=== PATIENT | male | born 1985 | race Caucasian/White ===

== ENCOUNTER 2020-12-26 11:30 | Emergency (ER) | payer MEDICAID, OTHER | END 2020-12-26 11:55 | LOC: JD.ED 11:30 | DX: Z53.21 Procedure and treatment not carried out due to patient leaving prior to being seen by health care provider (principal) ==

== ENCOUNTER 2020-12-31 09:07 | Inpatient (IN) | payer MEDICAID ==
[2020-12-31] MEDS ORDERED: Ondansetron 4 MG/2 ML SDV IVPUSH ONE (10:02)
[2020-12-31] MEDS ORDERED: Sodium Chloride 0.9% 10 ML Syringe FLUSH PRN (10:02)
[2020-12-31] MEDS ORDERED: Sodium Chloride 0.9% 1,000 ML IV SCH (10:15)
[2020-12-31] MEDS ORDERED: REMDESIVIR 200 MG in Sodium Chloride 0.9% 250 ML IV ONE (11:41)
[2020-12-31] MEDS ORDERED: Dexamethasone 4 MG/ML SDV IVPUSH ONE (11:41)
--- NOTE | 2020-12-31 11:56 | EDM.PDOC ---
ED HPI GENERAL MEDICAL PROBLEM - General Chief Complaint: Respiratory Problem Stated Complaint: COVID +/WORSENING SYMPTOMS Time Seen by Provider: 12/31/20 09:48 Source of Information: Reports: Patient History Limitations: Reports: No Limitations - History of Present Illness INITIAL COMMENTS - FREE TEXT/NARRATIVE: The patient presents with shortness of breath and cough. He was diagnosed with COVID 19 a week ago at our clinic and has gotten worse. He has a fever, chills, cough, shortness of breath, nausea, and vomiting. He says at times he is vomiting blood. He did not get vaccinated. He has no health problems like hypertension, hypercholesterolemia, heart disease or lung disease. He does not smoke. He has not been able to keep anything down. Onset: Gradual Duration: Week(s): Severity: Moderate Improves with: Reports: None Worsens with: Reports: None Associated Symptoms: Reports: Cough, Fever/Chills, Nausea/Vomiting, Shortness of Breath. Denies: Chest Pain, Headaches Generalized Pain Score (Numeric/FACES): 10 - Related Data Allergies Allergy/AdvReac Type Severity Reaction Status Date / Time buprenorphine [From Butrans] Allergy Rash Verified 12/31/20 10:49 Home Meds: Home Meds DULoxetine [Cymbalta] 60 mg PO DAILY 05/11/15 [History] Lidocaine 5% [Lidoderm 5%] 1,400 mg TOP DAILY 05/11/15 [History] Metaxalone [Skelaxin] 400 - 800 mg PO BID PRN 05/11/15 [History] Amphetamine/Dextroamphetamine [Adderall XR] 30 mg PO ASDIRECTED 12/31/20 [History] Past Medical History Musculoskeletal History: Reports: Other (See Below) Other Musculoskeletal History: hand surgery. chronic low back pain due to injury in 2011 Psychiatric History: Reports: ADD, Anxiety, Depression - Infectious Disease History Infectious Disease History: Reports: Chicken Pox - Past Surgical History HEENT Surgical History: Reports: Oral Surgery Social & Family History - Tobacco Use Tobacco Use Status *Q: Never Tobacco User Second Hand Smoke Exposure: No - Caffeine Use Caffeine Use: Reports: Coffee - Recreational Drug Use Recreational Drug Use: No ED ROS GENERAL - Review of Systems Review Of Systems: See Below Constitutional: Reports: Fever, Chills, Weakness, Fatigue HEENT: Reports: No Symptoms Respiratory: Reports: Shortness of Breath, Cough Cardiovascular: Reports: No Symptoms Endocrine: Reports: No Symptoms GI/Abdominal: Reports: Abdominal Pain, Nausea, Vomiting. Denies: Diarrhea ED EXAM, GENERAL - Physical Exam Exam: See Below Exam Limited By: No Limitations General Appearance: Alert, No Apparent Distress Ears: Normal External Exam Nose: Normal Inspection Head: Atraumatic, Normocephalic Neck: Normal Inspection Respiratory/Chest: No Respiratory Distress, Decreased Breath Sounds Cardiovascular: Regular Rate, Rhythm, No Edema, No Murmur GI/Abdominal: Soft, Non-Tender, No Organomegaly, No Mass Back Exam: Normal Inspection Extremities: Normal Inspection Neurological: Alert, Oriented, No Motor/Sensory Deficits #1 Interpretation EKG Date: 12/31/20 Time: 09:56 Rhythm: NSR Rate (Beats/Min): 82 [place]: Normal P-Wave: Present QRS: Normal ST-T: Other (Flattened T waves in the inferior leads) QT: Normal Course - Vital Signs Last Recorded V/S: Last Vital Signs Temp 98.5 F 12/31/20 09:45 Pulse 83 12/31/20 09:45 Resp 24 H 12/31/20 09:45 BP 118/75 12/31/20 09:45 Pulse Ox 82 L 12/31/20 09:45 - Orders/Labs/Meds Orders: Active Orders 24 hr Category Date Time Status Cardiac Monitoring [RC] . DIRECTED Care 12/31/20 10:02 Active Oxygen Therapy [RC] PRN Care 12/31/20 10:02 Active Peripheral IV Care [RC] . DIRECTED Care 12/31/20 10:03 Active Chest 1V Frontal [CR] Stat Exams 12/31/20 10:03 Taken HEPATIC FUNCTION PANEL,HFP [CHEM] DAILY Lab 01/01/21 11:45 Ordered HEPATIC FUNCTION PANEL,HFP [CHEM] DAILY Lab 01/02/21 11:45 Ordered HEPATIC FUNCTION PANEL,HFP [CHEM] DAILY Lab 01/03/21 11:45 Ordered HEPATIC FUNCTION PANEL,HFP [CHEM] DAILY Lab 01/04/21 11:45 Ordered HEPATIC FUNCTION PANEL,HFP [CHEM] Stat Lab 12/31/20 11:41 Ordered Sodium Chloride 0.9% [Normal Saline] 1,000 ml Med 12/31/20 10:15 Active IV .BOLUS Sodium Chloride 0.9% [Saline Flush] Med 12/31/20 10:02 Active 10 ml FLUSH ASDIRECTED PRN ED Antiemetic Medication Reflex [OM.PC] Stat Oth 12/31/20 10:02 Ordered Peripheral IV Insertion Adult [OM.PC] Stat Oth 12/31/20 10:02 Ordered Medication Orders Sodium Chloride (Normal Saline) 1,000 mls @ 1,000 mls/hr IV .BOLUS JORDAN Last Admin: 12/31/20 10:41 Dose: 1,000 mls/hr Documented by: JENNA Sodium Chloride (Sodium Chloride 0.9% 10 Ml Syringe) 10 ml FLUSH ASDIRECTED PRN PRN Reason: Keep Vein Open Last Admin: 12/31/20 10:41 Dose: 10 ml Documented by: JENNA Labs: Laboratory Tests 12/31/20 12/31/20 12/31/20 Range/Units 10:30 10:30 10:30 WBC 2.41 L* (4.23-9.07) K/mm3 RBC 4.82 (4.63-6.08) M/mm3 Hgb 14.0 (13.7-17.5) gm/dl Hct 42.2 (40.1-51.0) % MCV 87.6 (79.0-92.2) fl MCH 29.0 (25.7-32.2) pg MCHC 33.2 (32.2-35.5) g/dl RDW Std Deviation 44.2 H (35.1-43.9) fL Plt Count 169 (163-337) K/mm3 MPV 9.9 (9.4-12.3) fl Neut % (Auto) 59.7 (34.0-67.9) % Lymph % (Auto) 29.5 (21.8-53.1) % Kane % (Auto) 10.4 (5.3-12.2) % Eos % (Auto) 0 L (0.8-7.0) Baso % (Auto) 0.4 (0.1-1.2) % Neut # (Auto) 1.44 L (1.78-5.38) K/mm3 Lymph # (Auto) 0.71 L (1.32-3.57) K/mm3 Kane # (Auto) 0.25 L (0.30-0.82) K/mm3 Eos # (Auto) 0.00 L (0.04-0.54) K/mm3 Baso # (Auto) 0.01 (0.01-0.08) K/mm3 Puncture Site ABG pH (7.35-7.45) ABG pCO2 (35.0-45.0) mmHg ABG pO2 (80.0-100.0) mmHg ABG HCO3 (22.0-26.0) meq/L ABG O2 Saturation (96.0-97.0) % ABG Base Excess (-2-2.0) Camron Test A-a Gradient mmHg O2 Delivery Device Oxygen Flow Rate FiO2 (21.00-100.00) % Sodium 135 L (136-145) mEq/L Potassium 3.9 (3.5-5.1) mEq/L Chloride 97 L (98-107) mEq/L Carbon Dioxide 33 H (21-32) mEq/L Anion Gap 8.9 (5-15) BUN 9 (7-18) mg/dL Creatinine 0.9 (0.7-1.3) mg/dL Est Cr Clr Drug Dosing 135.73 mL/min Estimated GFR (MDRD) > 60 (>60) mL/min BUN/Creatinine Ratio 10.0 L (14-18) Glucose 107 H (70-99) mg/dL Lactic Acid 0.8 (0.4-2.0) mmol/L Calcium 8.1 L (8.5-10.1) mg/dL Ferritin (26-388) ng/ml Total Bilirubin 0.4 (0.2-1.0) mg/dL AST 101 H (15-37) U/L ALT 90 H (16-63) U/L Alkaline Phosphatase 48 (46-116) U/L Lactate Dehydrogenase 443 H (85-227) U/L Troponin I < 0.017 (0.00-0.056) ng/mL C-Reactive Protein 4.4 H* (<1.0) mg/dL Total Protein 6.6 (6.4-8.2) g/dl Albumin 3.3 L (3.4-5.0) g/dl Globulin 3.3 gm/dL Albumin/Globulin Ratio 1.0 (1-2) 12/31/20 12/31/20 Range/Units 10:30 10:32 WBC (4.23-9.07) K/mm3 RBC (4.63-6.08) M/mm3 Hgb (13.7-17.5) gm/dl Hct (40.1-51.0) % MCV (79.0-92.2) fl MCH (25.7-32.2) pg MCHC (32.2-35.5) g/dl RDW Std Deviation (35.1-43.9) fL Plt Count (163-337) K/mm3 MPV (9.4-12.3) fl Neut % (Auto) (34.0-67.9) % Lymph % (Auto) (21.8-53.1) % Kane % (Auto) (5.3-12.2) % Eos % (Auto) (0.8-7.0) Baso % (Auto) (0.1-1.2) % Neut # (Auto) (1.78-5.38) K/mm3 Lymph # (Auto) (1.32-3.57) K/mm3 Kane # (Auto) (0.30-0.82) K/mm3 Eos # (Auto) (0.04-0.54) K/mm3 Baso # (Auto) (0.01-0.08) K/mm3 Puncture Site Lt radial ABG pH 7.42 (7.35-7.45) ABG pCO2 45.0 (35.0-45.0) mmHg ABG pO2 55.0 L (80.0-100.0) mmHg ABG HCO3 28.6 H (22.0-26.0) meq/L ABG O2 Saturation 87.2 L (96.0-97.0) % ABG Base Excess 4.0 H (-2-2.0) Camron Test Positive A-a Gradient 89 mmHg O2 Delivery Device Nasal cannula Oxygen Flow Rate 2.0 FiO2 28.00 (21.00-100.00) % Sodium (136-145) mEq/L Potassium (3.5-5.1) mEq/L Chloride (98-107) mEq/L Carbon Dioxide (21-32) mEq/L Anion Gap (5-15) BUN (7-18) mg/dL Creatinine (0.7-1.3) mg/dL Est Cr Clr Drug Dosing mL/min Estimated GFR (MDRD) (>60) mL/min BUN/Creatinine Ratio (14-18) Glucose (70-99) mg/dL Lactic Acid (0.4-2.0) mmol/L Calcium (8.5-10.1) mg/dL Ferritin 563 H (26-388) ng/ml Total Bilirubin (0.2-1.0) mg/dL AST (15-37) U/L ALT (16-63) U/L Alkaline Phosphatase (46-116) U/L Lactate Dehydrogenase (85-227) U/L Troponin I (0.00-0.056) ng/mL C-Reactive Protein (<1.0) mg/dL Total Protein (6.4-8.2) g/dl Albumin (3.4-5.0) g/dl Globulin gm/dL Albumin/Globulin Ratio (1-2) Meds: Medications Generic Name Dose Route Start Last Admin Trade Name Freq PRN Reason Stop Dose Admin Sodium Chloride 1,000 mls @ 1,000 mls/hr 12/31/20 10:15 12/31/20 10:41 Normal Saline IV 1,000 mls/hr .BOLUS JORDAN Administration Sodium Chloride 10 ml 12/31/20 10:02 12/31/20 10:41 Sodium Chloride 0.9% 10 Ml Syringe FLUSH 10 ml ASDIRECTED PRN Administration Keep Vein Open Discontinued Medications Generic Name Dose Route Start Last Admin Trade Name Freq PRN Reason Stop Dose Admin Dexamethasone 6 mg 12/31/20 11:41 Dexamethasone 4 Mg/Ml Sdv IVPUSH 12/31/20 11:42 ONETIME ONE Remdesivir 200 mg/ Sodium 250 mls @ 250 mls/hr 12/31/20 11:41 Chloride IV 12/31/20 11:42 ONETIME ONE Ondansetron HCl 4 mg 12/31/20 10:02 12/31/20 10:41 Ondansetron 4 Mg/2 Ml Sdv IVPUSH 12/31/20 10:03 4 mg ONETIME ONE Administration - Re-Assessments/Exams Free Text/Narrative Re-Assessment/Exam: 12/31/20 12:03 I ordered oxygen, IV NS 1L bolus, zofran 4mg IV, labs, EKG, CXR, lactic acid. His EKG shows a NSR with no acute changes. His CXR shows bilateral infiltrates consistent with COVID 19 pneumonia. His WBC was low at 2.41. His pH was normal at 7.42. His pCO2 is normal at 45. His pO2 was low at 55. His Na was low at 135. His lactic acid was normal at 0.8. His ferritin was elevated at 563. His AST is elevated at 101. His ALT was elevated at 90. His LDH was elevated at 443. His troponin is negative. His CRP is elevated at 4.4. I upped his oxygen and pronated him and that improved his oxygenation. I feel he needs to be admitted. I called our hospitalist Dr Howell and he agreed to the admission. I have ordered remdesivir and dexamethasone. Departure - Departure Time of Disposition: 12:10 Disposition: Admitted As Inpatient 68 Condition: Serious Clinical Impression: Pneumonia due to COVID-19 virus, Hypoxia - Discharge Information Referrals: Joann Brink PA-C [Primary Care Provider] - Sepsis Event Note (ED) - Evaluation Sepsis Screening Result: No Definite Risk - Focused Exam Vital Signs: Vital Signs Temp Pulse Resp BP Pulse Ox 12/31/20 09:45 98.5 F 83 24 H 118/75 82 L - My Orders Last 24 Hours: My Active Orders 12/31/20 10:02 Cardiac Monitoring [RC] . DIRECTED Oxygen Therapy [RC] PRN Sodium Chloride 0.9% [Saline Flush] 10 ml FLUSH ASDIRECTED PRN ED Antiemetic Medication Reflex [OM.PC] Stat Peripheral IV Insertion Adult [OM.PC] Stat 12/31/20 10:03 Peripheral IV Care [RC] . DIRECTED Chest 1V Frontal [CR] Stat 12/31/20 10:15 Sodium Chloride 0.9% [Normal Saline] 1,000 ml IV .BOLUS 12/31/20 11:41 HEPATIC FUNCTION PANEL,HFP [CHEM] Stat 01/01/21 11:45 HEPATIC FUNCTION PANEL,HFP [CHEM] DAILY 01/02/21 11:45 HEPATIC FUNCTION PANEL,HFP [CHEM] DAILY 01/03/21 11:45 HEPATIC FUNCTION PANEL,HFP [CHEM] DAILY 01/04/21 11:45 HEPATIC FUNCTION PANEL,HFP [CHEM] DAILY - Assessment/Plan Last 24 Hours: My Active Orders 12/31/20 10:02 Cardiac Monitoring [RC] . DIRECTED Oxygen Therapy [RC] PRN Sodium Chloride 0.9% [Saline Flush] 10 ml FLUSH ASDIRECTED PRN ED Antiemetic Medication Reflex [OM.PC] Stat Peripheral IV Insertion Adult [OM.PC] Stat 12/31/20 10:03 Peripheral IV Care [RC] . DIRECTED Chest 1V Frontal [CR] Stat 12/31/20 10:15 Sodium Chloride 0.9% [Normal Saline] 1,000 ml IV .BOLUS 12/31/20 11:41 HEPATIC FUNCTION PANEL,HFP [CHEM] Stat 01/01/21 11:45 HEPATIC FUNCTION PANEL,HFP [CHEM] DAILY 01/02/21 11:45 HEPATIC FUNCTION PANEL,HFP [CHEM] DAILY 01/03/21 11:45 HEPATIC FUNCTION PANEL,HFP [CHEM] DAILY 01/04/21 11:45 HEPATIC FUNCTION PANEL,HFP [CHEM] DAILY
[2020-12-31] MEDS ORDERED: METAXALONE 800 MG PO PRN (12:13)
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
[2020-12-31] MEDS ORDERED: Non-Formulary Medication 1 Each (Amphetamine/Dextroamphetamine [Adderall Xr] 30 MG Cap.Er) PO SCH (12:15)
[2020-12-31] MEDS ORDERED: Metoclopramide 10 MG/2 ML SDV IVPUSH ONE (12:29)
[2020-12-31] MEDS ORDERED: Albuterol/Ipratropium 3.0-0.5 MG/3 ML Neb Soln NEB PRN (12:45)
[2020-12-31] MEDS ORDERED: Acetaminophen 325 MG Tab PO PRN (12:45)
[2020-12-31] MEDS ORDERED: Docusate Sodium 100 MG Cap PO PRN (12:45)
[2020-12-31] MEDS ORDERED: Temazepam 15 MG Cap PO PRN (12:45)
[2020-12-31] MEDS: Ondansetron 4 MG Tab.DIS PO PRN (14:24)
[2020-12-31] MEDS: Pantoprazole 40 MG Vial IVPUSH SCH ×2 (14:24→20:45)
[2020-12-31] MEDS: Promethazine 25 MG Tab PO PRN (16:07)
[2020-12-31] MEDS: Ondansetron 4 MG/2 ML SDV IVPUSH PRN ×2 (16:07→20:57)
[2020-12-31] MEDS: oxyCODONE 5 MG Tab PO PRN (21:05)
[2020-12-31] MEDS: Albuterol 6.7 GM Inhaler INH PRN (21:17)
--- NOTE | 2021-01-01 07:00 | PCM.PN ---
- General Info Date of Service: 01/01/21 Admission Dx/Problem (Free Text): Admission Diagnosis/Problem Admission Diagnosis/Problem Hypoxia Subjective Update: Patient is a 35-year-old gentleman who was admitted yesterday secondary to nausea and vomiting as well as COVID-19 pneumonia. The patient today says that he still has some nausea. He is feeling short of breath. The patient has been tolerating minimal food intake. The patient has lower back pain which has been chronic for him. The patient does feel that he has improved somewhat. Functional Status: Reports: Pain Controlled. Denies: Tolerating Diet - Review of Systems General: Reports: Weakness HEENT: Reports: No Symptoms Pulmonary: Reports: Shortness of Breath, Cough Cardiovascular: Reports: No Symptoms Gastrointestinal: Reports: Nausea Genitourinary: Reports: No Symptoms Musculoskeletal: Reports: No Symptoms Skin: Reports: No Symptoms Neurological: Reports: No Symptoms Psychiatric: Reports: No Symptoms - Patient Data Vitals - Most Recent: Last Vital Signs Temp 36.3 C 01/01/21 04:00 Pulse 82 12/31/20 17:56 Resp 20 01/01/21 04:00 BP 108/64 01/01/21 04:00 Pulse Ox 91 L 01/01/21 05:00 Weight - Most Recent: 115.666 kg I&O - Last 24 Hours: Intake & Output 12/31/20 01/01/21 01/01/21 22:59 06:59 14:59 Intake Total 1250 400 Output Total 300 Balance 950 400 Lab Results Last 24 Hours: Laboratory Results - last 24 hr 12/31/20 12/31/20 12/31/20 Range/Units 10:30 10:30 10:30 WBC 2.41 L* (4.23-9.07) K/mm3 RBC 4.82 (4.63-6.08) M/mm3 Hgb 14.0 (13.7-17.5) gm/dl Hct 42.2 (40.1-51.0) % MCV 87.6 (79.0-92.2) fl MCH 29.0 (25.7-32.2) pg MCHC 33.2 (32.2-35.5) g/dl RDW Std Deviation 44.2 H (35.1-43.9) fL Plt Count 169 (163-337) K/mm3 MPV 9.9 (9.4-12.3) fl Neut % (Auto) 59.7 (34.0-67.9) % Lymph % (Auto) 29.5 (21.8-53.1) % [place] % (Auto) 10.4 (5.3-12.2) % Eos % (Auto) 0 L (0.8-7.0) Baso % (Auto) 0.4 (0.1-1.2) % Neut # (Auto) 1.44 L (1.78-5.38) K/mm3 Lymph # (Auto) 0.71 L (1.32-3.57) K/mm3 [place] # (Auto) 0.25 L (0.30-0.82) K/mm3 Eos # (Auto) 0.00 L (0.04-0.54) K/mm3 Baso # (Auto) 0.01 (0.01-0.08) K/mm3 Puncture Site ABG pH (7.35-7.45) ABG pCO2 (35.0-45.0) mmHg ABG pO2 (80.0-100.0) mmHg ABG HCO3 (22.0-26.0) meq/L ABG O2 Saturation (96.0-97.0) % ABG Base Excess (-2-2.0) Camron Test A-a Gradient mmHg O2 Delivery Device Oxygen Flow Rate FiO2 (21.00-100.00) % Sodium 135 L (136-145) mEq/L Potassium 3.9 (3.5-5.1) mEq/L Chloride 97 L (98-107) mEq/L Carbon Dioxide 33 H (21-32) mEq/L Anion Gap 8.9 (5-15) BUN 9 (7-18) mg/dL Creatinine 0.9 (0.7-1.3) mg/dL Est Cr Clr Drug Dosing 135.73 mL/min Estimated GFR (MDRD) > 60 (>60) mL/min BUN/Creatinine Ratio 10.0 L (14-18) Glucose 107 H (70-99) mg/dL Lactic Acid 0.8 (0.4-2.0) mmol/L Calcium 8.1 L (8.5-10.1) mg/dL Magnesium (1.8-2.4) mg/dL Ferritin (26-388) ng/ml Total Bilirubin 0.4 (0.2-1.0) mg/dL Direct Bilirubin 0.10 (0.0-0.2) mg/dl AST 101 H (15-37) U/L ALT 90 H (16-63) U/L Alkaline Phosphatase 48 (46-116) U/L Lactate Dehydrogenase 443 H (85-227) U/L Troponin I < 0.017 (0.00-0.056) ng/mL C-Reactive Protein 4.4 H* (<1.0) mg/dL Total Protein 6.6 (6.4-8.2) g/dl Albumin 3.3 L (3.4-5.0) g/dl Globulin 3.3 gm/dL Albumin/Globulin Ratio 1.0 (1-2) 12/31/20 12/31/20 01/01/21 Range/Units 10:30 10:32 04:50 WBC 2.44 L* (4.23-9.07) K/mm3 RBC 4.90 (4.63-6.08) M/mm3 Hgb 14.0 (13.7-17.5) gm/dl Hct 43.3 (40.1-51.0) % MCV 88.4 (79.0-92.2) fl MCH 28.6 (25.7-32.2) pg MCHC 32.3 (32.2-35.5) g/dl RDW Std Deviation 45.7 H (35.1-43.9) fL Plt Count 184 (163-337) K/mm3 MPV 9.7 (9.4-12.3) fl Neut % (Auto) 55.0 (34.0-67.9) % Lymph % (Auto) 30.7 (21.8-53.1) % [place] % (Auto) 13.5 H (5.3-12.2) % Eos % (Auto) 0 L (0.8-7.0) Baso % (Auto) 0.4 (0.1-1.2) % Neut # (Auto) 1.34 L (1.78-5.38) K/mm3 Lymph # (Auto) 0.75 L (1.32-3.57) K/mm3 [place] # (Auto) 0.33 (0.30-0.82) K/mm3 Eos # (Auto) 0.00 L (0.04-0.54) K/mm3 Baso # (Auto) 0.01 (0.01-0.08) K/mm3 Puncture Site Lt radial ABG pH 7.42 (7.35-7.45) ABG pCO2 45.0 (35.0-45.0) mmHg ABG pO2 55.0 L (80.0-100.0) mmHg ABG HCO3 28.6 H (22.0-26.0) meq/L ABG O2 Saturation 87.2 L (96.0-97.0) % ABG Base Excess 4.0 H (-2-2.0) Camron Test Positive A-a Gradient 89 mmHg O2 Delivery Device Nasal cannula Oxygen Flow Rate 2.0 FiO2 28.00 (21.00-100.00) % Sodium (136-145) mEq/L Potassium (3.5-5.1) mEq/L Chloride (98-107) mEq/L Carbon Dioxide (21-32) mEq/L Anion Gap (5-15) BUN (7-18) mg/dL Creatinine (0.7-1.3) mg/dL Est Cr Clr Drug Dosing mL/min Estimated GFR (MDRD) (>60) mL/min BUN/Creatinine Ratio (14-18) Glucose (70-99) mg/dL Lactic Acid (0.4-2.0) mmol/L Calcium (8.5-10.1) mg/dL Magnesium (1.8-2.4) mg/dL Ferritin 563 H (26-388) ng/ml Total Bilirubin (0.2-1.0) mg/dL Direct Bilirubin (0.0-0.2) mg/dl AST (15-37) U/L ALT (16-63) U/L Alkaline Phosphatase (46-116) U/L Lactate Dehydrogenase (85-227) U/L Troponin I (0.00-0.056) ng/mL C-Reactive Protein (<1.0) mg/dL Total Protein (6.4-8.2) g/dl Albumin (3.4-5.0) g/dl Globulin gm/dL Albumin/Globulin Ratio (1-2) 01/01/21 Range/Units 04:50 WBC (4.23-9.07) K/mm3 RBC (4.63-6.08) M/mm3 Hgb (13.7-17.5) gm/dl Hct (40.1-51.0) % MCV (79.0-92.2) fl MCH (25.7-32.2) pg MCHC (32.2-35.5) g/dl RDW Std Deviation (35.1-43.9) fL Plt Count (163-337) K/mm3 MPV (9.4-12.3) fl Neut % (Auto) (34.0-67.9) % Lymph % (Auto) (21.8-53.1) % [place] % (Auto) (5.3-12.2) % Eos % (Auto) (0.8-7.0) Baso % (Auto) (0.1-1.2) % Neut # (Auto) (1.78-5.38) K/mm3 Lymph # (Auto) (1.32-3.57) K/mm3 [place] # (Auto) (0.30-0.82) K/mm3 Eos # (Auto) (0.04-0.54) K/mm3 Baso # (Auto) (0.01-0.08) K/mm3 Puncture Site ABG pH (7.35-7.45) ABG pCO2 (35.0-45.0) mmHg ABG pO2 (80.0-100.0) mmHg ABG HCO3 (22.0-26.0) meq/L ABG O2 Saturation (96.0-97.0) % ABG Base Excess (-2-2.0) Camron Test A-a Gradient mmHg O2 Delivery Device Oxygen Flow Rate FiO2 (21.00-100.00) % Sodium 142 (136-145) mEq/L Potassium 4.2 (3.5-5.1) mEq/L Chloride 104 (98-107) mEq/L Carbon Dioxide 32 (21-32) mEq/L Anion Gap 10.2 (5-15) BUN 11 (7-18) mg/dL Creatinine 0.9 (0.7-1.3) mg/dL Est Cr Clr Drug Dosing 135.73 mL/min Estimated GFR (MDRD) > 60 (>60) mL/min BUN/Creatinine Ratio 12.2 L (14-18) Glucose 117 H (70-99) mg/dL Lactic Acid (0.4-2.0) mmol/L Calcium 8.3 L (8.5-10.1) mg/dL Magnesium 2.0 (1.8-2.4) mg/dL Ferritin (26-388) ng/ml Total Bilirubin 0.4 (0.2-1.0) mg/dL Direct Bilirubin (0.0-0.2) mg/dl AST 90 H (15-37) U/L ALT 86 H (16-63) U/L Alkaline Phosphatase 45 L (46-116) U/L Lactate Dehydrogenase (85-227) U/L Troponin I (0.00-0.056) ng/mL C-Reactive Protein 3.8 H* (<1.0) mg/dL Total Protein 6.4 (6.4-8.2) g/dl Albumin 3.0 L (3.4-5.0) g/dl Globulin 3.4 gm/dL Albumin/Globulin Ratio 0.9 L (1-2) Med Orders - Current: Current Medications Acetaminophen (Acetaminophen 325 Mg Tab) 650 mg PO Q4H PRN PRN Reason: Pain (Mild 1-3)/fever Albuterol (Albuterol 6.7 Gm Inhaler) 0 gm INH Q4H PRN PRN Reason: SOB/WHEEZING Last Admin: 12/31/20 21:17 Dose: 2 puff Documented by: Albuterol/Ipratropium (Albuterol/Ipratropium 3.0-0.5 Mg/3 Ml Neb Soln) 3 ml NEB Q4H PRN PRN Reason: Shortness Of Breath/wheezing Dexamethasone (Dexamethasone 4 Mg Tab) 6 mg PO DAILY [facility] Docusate Sodium (Docusate Sodium 100 Mg Cap) 100 mg PO BID PRN PRN Reason: Constipation Duloxetine HCl (Duloxetine 30 Mg Cap) 60 mg PO DAILY [facility] Remdesivir 100 mg/ Sodium (Chloride) 100 mls @ 100 mls/hr IV Q24H [facility] Stop: 01/04/21 13:59 Ondansetron HCl (Ondansetron 4 Mg Tab.Dis) 4 mg PO Q4H PRN PRN Reason: nausea, able to take PO Last Admin: 12/31/20 14:24 Dose: 4 mg Documented by: Ondansetron HCl (Ondansetron 4 Mg/2 Ml Sdv) 4 mg IVPUSH Q6H PRN PRN Reason: Nausea/Vomiting Last Admin: 12/31/20 20:57 Dose: 4 mg Documented by: Oxycodone HCl (Oxycodone 5 Mg Tab) 5 mg PO Q4H PRN PRN Reason: Pain (moderate 4-6) Last Admin: 12/31/20 21:05 Dose: 5 mg Documented by: Pantoprazole Sodium (Pantoprazole 40 Mg Vial) 40 mg IVPUSH BID JORDAN Last Admin: 12/31/20 20:45 Dose: 40 mg Documented by: Promethazine HCl (Promethazine 25 Mg Tab) 25 mg PO Q12H PRN PRN Reason: Nausea/Vomiting Last Admin: 12/31/20 16:07 Dose: 25 mg Documented by: Sodium Chloride (Sodium Chloride 0.9% 10 Ml Syringe) 10 ml FLUSH ASDIRECTED PRN PRN Reason: Keep Vein Open Last Admin: 12/31/20 10:41 Dose: 10 ml Documented by: Temazepam (Temazepam 15 Mg Cap) 15 mg PO BEDTIME PRN PRN Reason: Sleep Discontinued Medications Dexamethasone (Dexamethasone 4 Mg/Ml Sdv) 6 mg IVPUSH ONETIME ONE Stop: 12/31/20 11:42 Last Admin: 12/31/20 13:09 Dose: 6 mg Documented by: Enoxaparin Sodium (Enoxaparin 40 Mg/0.4 Ml Syringe) 40 mg SUBCUT DAILY [facility] Sodium Chloride (Normal Saline) 1,000 mls @ 1,000 mls/hr IV .BOLUS [facility] Last Admin: 12/31/20 10:41 Dose: 1,000 mls/hr Documented by: Remdesivir 200 mg/ Sodium (Chloride) 250 mls @ 250 mls/hr IV ONETIME ONE Stop: 12/31/20 11:42 Last Admin: 12/31/20 13:15 Dose: 250 mls/hr Documented by: Metoclopramide HCl (Metoclopramide 10 Mg/2 Ml Sdv) 10 mg IVPUSH ONETIME ONE Stop: 12/31/20 12:30 Last Admin: 12/31/20 13:09 Dose: 10 mg Documented by: Non-Formulary Medication (Amphetamine/Dextroamphetamine [Adderall Xr]) 30 mg PO ASDIRECTED JORDAN Non-Formulary Medication (Metaxalone) 400 mg PO BID PRN PRN Reason: Pain Ondansetron HCl (Ondansetron 4 Mg/2 Ml Sdv) 4 mg IVPUSH ONETIME ONE Stop: 12/31/20 10:03 Last Admin: 12/31/20 10:41 Dose: 4 mg Documented by: - Exam Quality Assessment: Supplemental Oxygen, DVT Prophylaxis General: Alert, Oriented, Cooperative, No Acute Distress HEENT: Pupils Equal, Pupils Reactive, EOMI, Mucous Membr. Moist/[place] Neck: Supple, Trachea Midline Lungs: Decreased Breath Sounds, Crackles, Rales Cardiovascular: Regular Rate, Regular Rhythm GI/Abdominal Exam: Normal Bowel Sounds, Soft, Non-Tender, No Distention (Male) Exam: Deferred Back Exam: Normal Inspection, Full Range of Motion Extremities: Normal Inspection, Normal Range of Motion, No Pedal Edema Skin: Warm, Intact, Moist Neurological: No New Focal Deficit, Normal Gait, Normal Speech, Normal Tone Psy/Mental Status: Alert, Normal Affect, Normal Mood - Patient Data Lab Results Last 24 hrs: Laboratory Results - last 24 hr 12/31/20 12/31/20 12/31/20 Range/Units 10:30 10:30 10:30 WBC 2.41 L* (4.23-9.07) K/mm3 RBC 4.82 (4.63-6.08) M/mm3 Hgb 14.0 (13.7-17.5) gm/dl Hct 42.2 (40.1-51.0) % MCV 87.6 (79.0-92.2) fl MCH 29.0 (25.7-32.2) pg MCHC 33.2 (32.2-35.5) g/dl RDW Std Deviation 44.2 H (35.1-43.9) fL Plt Count 169 (163-337) K/mm3 MPV 9.9 (9.4-12.3) fl Neut % (Auto) 59.7 (34.0-67.9) % Lymph % (Auto) 29.5 (21.8-53.1) % [place] % (Auto) 10.4 (5.3-12.2) % Eos % (Auto) 0 L (0.8-7.0) Baso % (Auto) 0.4 (0.1-1.2) % Neut # (Auto) 1.44 L (1.78-5.38) K/mm3 Lymph # (Auto) 0.71 L (1.32-3.57) K/mm3 [place] # (Auto) 0.25 L (0.30-0.82) K/mm3 Eos # (Auto) 0.00 L (0.04-0.54) K/mm3 Baso # (Auto) 0.01 (0.01-0.08) K/mm3 Puncture Site ABG pH (7.35-7.45) ABG pCO2 (35.0-45.0) mmHg ABG pO2 (80.0-100.0) mmHg ABG HCO3 (22.0-26.0) meq/L ABG O2 Saturation (96.0-97.0) % ABG Base Excess (-2-2.0) Camron Test A-a Gradient mmHg O2 Delivery Device Oxygen Flow Rate FiO2 (21.00-100.00) % Sodium 135 L (136-145) mEq/L Potassium 3.9 (3.5-5.1) mEq/L Chloride 97 L (98-107) mEq/L Carbon Dioxide 33 H (21-32) mEq/L Anion Gap 8.9 (5-15) BUN 9 (7-18) mg/dL Creatinine 0.9 (0.7-1.3) mg/dL Est Cr Clr Drug Dosing 135.73 mL/min Estimated GFR (MDRD) > 60 (>60) mL/min BUN/Creatinine Ratio 10.0 L (14-18) Glucose 107 H (70-99) mg/dL Lactic Acid 0.8 (0.4-2.0) mmol/L Calcium 8.1 L (8.5-10.1) mg/dL Magnesium (1.8-2.4) mg/dL Ferritin (26-388) ng/ml Total Bilirubin 0.4 (0.2-1.0) mg/dL Direct Bilirubin 0.10 (0.0-0.2) mg/dl AST 101 H (15-37) U/L ALT 90 H (16-63) U/L Alkaline Phosphatase 48 (46-116) U/L Lactate Dehydrogenase 443 H (85-227) U/L Troponin I < 0.017 (0.00-0.056) ng/mL C-Reactive Protein 4.4 H* (<1.0) mg/dL Total Protein 6.6 (6.4-8.2) g/dl Albumin 3.3 L (3.4-5.0) g/dl Globulin 3.3 gm/dL Albumin/Globulin Ratio 1.0 (1-2) 12/31/20 12/31/20 01/01/21 Range/Units 10:30 10:32 04:50 WBC 2.44 L* (4.23-9.07) K/mm3 RBC 4.90 (4.63-6.08) M/mm3 Hgb 14.0 (13.7-17.5) gm/dl Hct 43.3 (40.1-51.0) % MCV 88.4 (79.0-92.2) fl MCH 28.6 (25.7-32.2) pg MCHC 32.3 (32.2-35.5) g/dl RDW Std Deviation 45.7 H (35.1-43.9) fL Plt Count 184 (163-337) K/mm3 MPV 9.7 (9.4-12.3) fl Neut % (Auto) 55.0 (34.0-67.9) % Lymph % (Auto) 30.7 (21.8-53.1) % [place] % (Auto) 13.5 H (5.3-12.2) % Eos % (Auto) 0 L (0.8-7.0) Baso % (Auto) 0.4 (0.1-1.2) % Neut # (Auto) 1.34 L (1.78-5.38) K/mm3 Lymph # (Auto) 0.75 L (1.32-3.57) K/mm3 [place] # (Auto) 0.33 (0.30-0.82) K/mm3 Eos # (Auto) 0.00 L (0.04-0.54) K/mm3 Baso # (Auto) 0.01 (0.01-0.08) K/mm3 Puncture Site Lt radial ABG pH 7.42 (7.35-7.45) ABG pCO2 45.0 (35.0-45.0) mmHg ABG pO2 55.0 L (80.0-100.0) mmHg ABG HCO3 28.6 H (22.0-26.0) meq/L ABG O2 Saturation 87.2 L (96.0-97.0) % ABG Base Excess 4.0 H (-2-2.0) Camron Test Positive A-a Gradient 89 mmHg O2 Delivery Device Nasal cannula Oxygen Flow Rate 2.0 FiO2 28.00 (21.00-100.00) % Sodium (136-145) mEq/L Potassium (3.5-5.1) mEq/L Chloride (98-107) mEq/L Carbon Dioxide (21-32) mEq/L Anion Gap (5-15) BUN (7-18) mg/dL Creatinine (0.7-1.3) mg/dL Est Cr Clr Drug Dosing mL/min Estimated GFR (MDRD) (>60) mL/min BUN/Creatinine Ratio (14-18) Glucose (70-99) mg/dL Lactic Acid (0.4-2.0) mmol/L Calcium (8.5-10.1) mg/dL Magnesium (1.8-2.4) mg/dL Ferritin 563 H (26-388) ng/ml Total Bilirubin (0.2-1.0) mg/dL Direct Bilirubin (0.0-0.2) mg/dl AST (15-37) U/L ALT (16-63) U/L Alkaline Phosphatase (46-116) U/L Lactate Dehydrogenase (85-227) U/L Troponin I (0.00-0.056) ng/mL C-Reactive Protein (<1.0) mg/dL Total Protein (6.4-8.2) g/dl Albumin (3.4-5.0) g/dl Globulin gm/dL Albumin/Globulin Ratio (1-2) 01/01/21 Range/Units 04:50 WBC (4.23-9.07) K/mm3 RBC (4.63-6.08) M/mm3 Hgb (13.7-17.5) gm/dl Hct (40.1-51.0) % MCV (79.0-92.2) fl MCH (25.7-32.2) pg MCHC (32.2-35.5) g/dl RDW Std Deviation (35.1-43.9) fL Plt Count (163-337) K/mm3 MPV (9.4-12.3) fl Neut % (Auto) (34.0-67.9) % Lymph % (Auto) (21.8-53.1) % [place] % (Auto) (5.3-12.2) % Eos % (Auto) (0.8-7.0) Baso % (Auto) (0.1-1.2) % Neut # (Auto) (1.78-5.38) K/mm3 Lymph # (Auto) (1.32-3.57) K/mm3 [place] # (Auto) (0.30-0.82) K/mm3 Eos # (Auto) (0.04-0.54) K/mm3 Baso # (Auto) (0.01-0.08) K/mm3 Puncture Site ABG pH (7.35-7.45) ABG pCO2 (35.0-45.0) mmHg ABG pO2 (80.0-100.0) mmHg ABG HCO3 (22.0-26.0) meq/L ABG O2 Saturation (96.0-97.0) % ABG Base Excess (-2-2.0) Camron Test A-a Gradient mmHg O2 Delivery Device Oxygen Flow Rate FiO2 (21.00-100.00) % Sodium 142 (136-145) mEq/L Potassium 4.2 (3.5-5.1) mEq/L Chloride 104 (98-107) mEq/L Carbon Dioxide 32 (21-32) mEq/L Anion Gap 10.2 (5-15) BUN 11 (7-18) mg/dL Creatinine 0.9 (0.7-1.3) mg/dL Est Cr Clr Drug Dosing 135.73 mL/min Estimated GFR (MDRD) > 60 (>60) mL/min BUN/Creatinine Ratio 12.2 L (14-18) Glucose 117 H (70-99) mg/dL Lactic Acid (0.4-2.0) mmol/L Calcium 8.3 L (8.5-10.1) mg/dL Magnesium 2.0 (1.8-2.4) mg/dL Ferritin (26-388) ng/ml Total Bilirubin 0.4 (0.2-1.0) mg/dL Direct Bilirubin (0.0-0.2) mg/dl AST 90 H (15-37) U/L ALT 86 H (16-63) U/L Alkaline Phosphatase 45 L (46-116) U/L Lactate Dehydrogenase (85-227) U/L Troponin I (0.00-0.056) ng/mL C-Reactive Protein 3.8 H* (<1.0) mg/dL Total Protein 6.4 (6.4-8.2) g/dl Albumin 3.0 L (3.4-5.0) g/dl Globulin 3.4 gm/dL Albumin/Globulin Ratio 0.9 L (1-2) Result Diagrams: 01/01/21 04:50 01/01/21 04:50 Sepsis Event Note - Evaluation Sepsis Screening Result: Possible Sepsis Risk - Focused Exam Vital Signs: Vital Signs Temp Resp BP Pulse Ox Pulse Ox 01/01/21 05:00 91 L 01/01/21 04:26 91 L 01/01/21 04:00 36.3 C 20 108/64 90 L 12/31/20 23:58 36.0 C L 20 99/68 91 L 12/31/20 23:03 91 L 12/31/20 23:00 92 L 12/31/20 22:00 92 L 12/31/20 21:20 96 12/31/20 21:00 100 98 12/31/20 20:40 100 12/31/20 20:00 35.8 C L 20 94/54 L 95 - Problem List & Annotations (1) Acute respiratory failure due to COVID-19 SNOMED Code(s): 572427136 Code(s): U07.1 - COVID-19; J96.00 - ACUTE RESPIRATORY FAILURE, UNSP W HYPOXIA OR HYPERCAPNIA Status: Acute Priority: High Current Visit: Yes (2) Pneumonia due to COVID-19 virus SNOMED Code(s): 009014413400852091 Code(s): U07.1 - COVID-19; J12.82 - PNEUMONIA DUE TO CORONAVIRUS DISEASE 2019 Status: Acute Priority: High Current Visit: Yes (3) Hypoxia SNOMED Code(s): 691916154 Code(s): R09.02 - HYPOXEMIA Status: Acute Priority: High Current Visit: Yes (4) Leukopenia SNOMED Code(s): 63198763, 400067821 Code(s): D72.819 - DECREASED WHITE BLOOD CELL COUNT, UNSPECIFIED Status: Acute Priority: High Current Visit: Yes Qualifiers: Leukopenia type: neutropenia Neutropenia type: due to infection Qualified Code(s): D70.3 - Neutropenia due to infection - Problem List Review Problem List Initiated/Reviewed/Updated: Yes - My Orders Last 24 Hours: My Active Orders 12/31/20 12:45 Oxygen Therapy [RC] PRN Up ad [place] [RC] ASDIRECTED VTE/DVT Education [RC] Vital Signs [RC] Q4H Acetaminophen [TylenoL] 650 mg PO Q4H PRN Albuterol/Ipratropium [DuoNeb 3.0-0.5 MG/3 ML] 3 ml NEB Q4H PRN Docusate Sodium [Colace] 100 mg PO BID PRN Ondansetron [Zofran ODT] 4 mg PO Q4H PRN Temazepam [Restoril] 15 mg PO BEDTIME PRN oxyCODONE 5 mg PO Q4H PRN Resuscitation Status Routine 12/31/20 12:46 Cardiac Monitoring [RC] CONTINUOUS 12/31/20 12:52 RT Aerosol Therapy [RC] ASDIRECTED 12/31/20 13:00 Pantoprazole [ProTONIX IV] 40 mg IVPUSH BID 12/31/20 13:19 Antiembolic Devices [RC] SCD [Sequential Compression Device] [OM.PC] Routine 12/31/20 13:23 Chest Physiotherapy [RT Chest Physiotherapy] [RC] ASDIRECTED Incentive Spirometry [RT Incentive Spirometry] [RC] Q1HWA 12/31/20 13:24 Albuterol [Proventil HFA] See Dose Instructions INH Q4H PRN 12/31/20 15:55 Ondansetron [Zofran] 4 mg IVPUSH Q6H PRN 12/31/20 15:56 Promethazine [Phenergan] 25 mg PO Q12H PRN 12/31/20 Dinner Regular Diet [DIET] 01/01/21 09:00 DULoxetine [Cymbalta] 60 mg PO DAILY dexAMETHasone 6 mg PO DAILY 01/01/21 13:00 Remdesivir 100 mg Sodium Chloride 0.9% [Normal Saline] 100 ml IV Q24H - Assessment Assessment:: The patient is a 35-year-old gentleman who is somewhat improved today. He is currently on remdesivir and dexamethasone. Both these will be continued. The patient is also remaining leukopenia and repeat laboratory studies have been ordered. The leukopenia is secondary to his viral infection. Continue with diet as tolerated. Continue to monitor vital signs. Continue on telemetry. The patient previously had been contraindicated for pharmacological DVT prophylaxis. This was due to vomiting of blood or blood like material. The patient's hemoglobin has remained stable. If the patient's hemoglobin has remained stable then consider discontinuing SCDs and restarting heparin or Lovenox. The patient should be appropriate for discharge after completion of remdesivir. - Plan Plan:: The patient is a 35-year-old gentleman who is being admitted to acute hospitalization as an inpatient secondary to acute respiratory failure and pneumonia associated with COVID-19. The patient had a single dose of remdesivir 200 mg IV in the emergency department and he has been started on remdesivir 100 mg IV starting tomorrow. The patient is also on dexamethasone 6 mg p.o. daily to start tomorrow. The patient's hemoglobin was in the normal range and he may have been vomiting blood due to gastritis or esophageal tear regardless the patient's nausea and vomiting will be controlled with the use of Zofran and have also elected to place the patient on Protonix IV 40 mg twice daily. The patient will also have repeat laboratory studies in the morning to help monitor the patient's hepatic function from use with the remdesivir. The patient's hemoglobin will be monitored for any drop. The patient also will have his oxygen titrated to keep his saturations around 92%. The patient will have DVT prophylaxis with the use of SCDs. Patient will also have regular diet as tolerated. The patient should be appropriate for discharge after oxygen demands have been improved and remdesivir is finished. This may take 4 to 5 days.
[2021-01-01] MEDS: oxyCODONE 5 MG Tab PO PRN ×4 (07:12→22:13)
[2021-01-01] MEDS: Ondansetron 4 MG/2 ML SDV IVPUSH PRN ×2 (07:13→13:17)
[2021-01-01] MEDS: Albuterol 6.7 GM Inhaler INH PRN ×3 (08:36→21:24)
[2021-01-01] MEDS ORDERED: Enoxaparin 40 MG/0.4 ML Syringe SUBCUT SCH (09:00)
[2021-01-01] MEDS: Pantoprazole 40 MG Vial IVPUSH SCH ×2 (09:21→20:50)
[2021-01-01] MEDS: DULoxetine 30 MG Cap PO SCH (09:21)
--- NOTE | 2021-01-01 09:21 | CR ---
Chest: Portable view of the chest was obtained. Comparison: Prior chest x-ray of 02/25/14. Patchy areas of increased density are seen throughout both sides of the chest. Heart size and mediastinum are normal. Bony structures are grossly intact. Impression: 1. Patchy areas of increased density within both sides of the chest. Findings are suspicious for COVID pneumonia. Please correlate. Diagnostic code #3
[2021-01-01] MEDS: Dexamethasone 4 MG Tab PO SCH (09:22)
[2021-01-01] MEDS: Benzonatate 100 MG Cap PO PRN ×2 (09:22→20:56)
[2021-01-01] MEDS: Promethazine 25 MG Tab PO PRN (09:22)
[2021-01-01] MEDS: REMDESIVIR 100 MG in Sodium Chloride 0.9% 100 ML IV SCH (12:46)
[2021-01-02] MEDS: oxyCODONE 5 MG Tab PO PRN ×3 (05:20→21:38)
[2021-01-02] MEDS: Benzonatate 100 MG Cap PO PRN ×3 (05:20→21:38)
[2021-01-02] MEDS: Albuterol 6.7 GM Inhaler INH PRN ×2 (05:49→07:55)
--- NOTE | 2021-01-02 07:10 | PCM.PN ---
- General Info Date of Service: 01/02/21 Admission Dx/Problem (Free Text): Admission Diagnosis/Problem Admission Diagnosis/Problem Hypoxia Subjective Update: The patient is a 35-year-old gentleman who had been admitted to acute hospitalization on December 31, 2020 due to acute respiratory failure from COVID- 19 pneumonia. The patient today says that he has still has some nausea and he has had some vomiting with blood like material. The patient has been able to tolerate some liquids. The patient says that he is a little bit better today. Functional Status: Reports: Pain Controlled, Tolerating Diet - Review of Systems General: Reports: No Symptoms HEENT: Reports: No Symptoms Pulmonary: Reports: Shortness of Breath, Cough Cardiovascular: Reports: No Symptoms Gastrointestinal: Reports: Decreased Appetite, Nausea, Vomiting Genitourinary: Reports: No Symptoms Musculoskeletal: Reports: No Symptoms Skin: Reports: No Symptoms Neurological: Reports: No Symptoms Psychiatric: Reports: No Symptoms - Patient Data Vitals - Most Recent: Last Vital Signs Temp 36.2 C 01/02/21 04:00 Pulse 82 12/31/20 17:56 Resp 16 01/02/21 04:00 BP 113/73 01/02/21 04:00 Pulse Ox 93 L 01/02/21 06:00 Weight - Most Recent: 114.94 kg I&O - Last 24 Hours: Intake & Output 01/01/21 01/02/21 01/02/21 22:59 06:59 14:59 Intake Total 2100 1000 Balance 2100 1000 Lab Results Last 24 Hours: Laboratory Results - last 24 hr 01/02/21 01/02/21 Range/Units 05:15 05:15 WBC 4.12 L (4.23-9.07) K/mm3 RBC 5.01 (4.63-6.08) M/mm3 Hgb 14.4 (13.7-17.5) gm/dl Hct 45.0 (40.1-51.0) % MCV 89.8 (79.0-92.2) fl MCH 28.7 (25.7-32.2) pg MCHC 32.0 L (32.2-35.5) g/dl RDW Std Deviation 46.7 H (35.1-43.9) fL Plt Count 254 (163-337) K/mm3 MPV 9.8 (9.4-12.3) fl Neut % (Auto) 59.8 (34.0-67.9) % Lymph % (Auto) 26.2 (21.8-53.1) % [place]oun % (Auto) 13.6 H (5.3-12.2) % Eos % (Auto) 0 L (0.8-7.0) Baso % (Auto) 0.2 (0.1-1.2) % Neut # (Auto) 2.46 (1.78-5.38) K/mm3 Lymph # (Auto) 1.08 L (1.32-3.57) K/mm3 [place]oun # (Auto) 0.56 (0.30-0.82) K/mm3 Eos # (Auto) 0.00 L (0.04-0.54) K/mm3 Baso # (Auto) 0.01 (0.01-0.08) K/mm3 Sodium 143 (136-145) mEq/L Potassium 4.9 (3.5-5.1) mEq/L Chloride 103 (98-107) mEq/L Carbon Dioxide 35 H (21-32) mEq/L Anion Gap 9.9 (5-15) BUN 13 (7-18) mg/dL Creatinine 0.9 (0.7-1.3) mg/dL Est Cr Clr Drug Dosing 135.73 mL/min Estimated GFR (MDRD) > 60 (>60) mL/min BUN/Creatinine Ratio 14.4 (14-18) Glucose 136 H (70-99) mg/dL Calcium 8.9 (8.5-10.1) mg/dL Magnesium 2.2 (1.8-2.4) mg/dL Total Bilirubin 0.4 (0.2-1.0) mg/dL AST 67 H (15-37) U/L ALT 78 H (16-63) U/L Alkaline Phosphatase 48 (46-116) U/L C-Reactive Protein 1.8 H* (<1.0) mg/dL Total Protein 7.0 (6.4-8.2) g/dl Albumin 3.3 L (3.4-5.0) g/dl Globulin 3.7 gm/dL Albumin/Globulin Ratio 0.9 L (1-2) Med Orders - Current: Current Medications Acetaminophen (Acetaminophen 325 Mg Tab) 650 mg PO Q4H PRN PRN Reason: Pain (Mild 1-3)/fever Albuterol (Albuterol 6.7 Gm Inhaler) 0 gm INH Q4H PRN PRN Reason: SOB/WHEEZING Last Admin: 01/02/21 05:49 Dose: 2 puff Documented by: Albuterol/Ipratropium (Albuterol/Ipratropium 3.0-0.5 Mg/3 Ml Neb Soln) 3 ml NEB Q4H PRN PRN Reason: Shortness Of Breath/wheezing Benzonatate (Benzonatate 100 Mg Cap) 100 mg PO Q8H PRN PRN Reason: Cough Last Admin: 01/02/21 05:20 Dose: 100 mg Documented by: Dexamethasone (Dexamethasone 4 Mg Tab) 6 mg PO DAILY [facility] Last Admin: 01/01/21 09:22 Dose: 6 mg Documented by: Docusate Sodium (Docusate Sodium 100 Mg Cap) 100 mg PO BID PRN PRN Reason: Constipation Duloxetine HCl (Duloxetine 30 Mg Cap) 60 mg PO DAILY [facility] Last Admin: 01/01/21 09:21 Dose: 60 mg Documented by: Remdesivir 100 mg/ Sodium (Chloride) 100 mls @ 100 mls/hr IV Q24H [facility] Stop: 01/04/21 13:59 Last Admin: 01/01/21 12:46 Dose: 100 mls/hr Documented by: Ondansetron HCl (Ondansetron 4 Mg Tab.Dis) 4 mg PO Q4H PRN PRN Reason: nausea, able to take PO Last Admin: 12/31/20 14:24 Dose: 4 mg Documented by: Ondansetron HCl (Ondansetron 4 Mg/2 Ml Sdv) 4 mg IVPUSH Q6H PRN PRN Reason: Nausea/Vomiting Last Admin: 01/01/21 13:17 Dose: 4 mg Documented by: Oxycodone HCl (Oxycodone 5 Mg Tab) 5 mg PO Q4H PRN PRN Reason: Pain (moderate 4-6) Last Admin: 01/02/21 05:20 Dose: 5 mg Documented by: Pantoprazole Sodium (Pantoprazole 40 Mg Vial) 40 mg IVPUSH BID [facility] Last Admin: 01/01/21 20:50 Dose: 40 mg Documented by: Promethazine HCl (Promethazine 25 Mg Tab) 25 mg PO Q12H PRN PRN Reason: Nausea/Vomiting Last Admin: 01/01/21 09:22 Dose: 25 mg Documented by: Sodium Chloride (Sodium Chloride 0.9% 10 Ml Syringe) 10 ml FLUSH ASDIRECTED PRN PRN Reason: Keep Vein Open Last Admin: 12/31/20 10:41 Dose: 10 ml Documented by: Temazepam (Temazepam 15 Mg Cap) 15 mg PO BEDTIME PRN PRN Reason: Sleep Last Admin: 01/01/21 22:13 Dose: 15 mg Documented by: Discontinued Medications Dexamethasone (Dexamethasone 4 Mg/Ml Sdv) 6 mg IVPUSH ONETIME ONE Stop: 12/31/20 11:42 Last Admin: 12/31/20 13:09 Dose: 6 mg Documented by: Enoxaparin Sodium (Enoxaparin 40 Mg/0.4 Ml Syringe) 40 mg SUBCUT DAILY JORDAN Sodium Chloride (Normal Saline) 1,000 mls @ 1,000 mls/hr IV .BOLUS JORDAN Last Admin: 12/31/20 10:41 Dose: 1,000 mls/hr Documented by: Remdesivir 200 mg/ Sodium (Chloride) 250 mls @ 250 mls/hr IV ONETIME ONE Stop: 12/31/20 11:42 Last Admin: 12/31/20 13:15 Dose: 250 mls/hr Documented by: Metoclopramide HCl (Metoclopramide 10 Mg/2 Ml Sdv) 10 mg IVPUSH ONETIME ONE Stop: 12/31/20 12:30 Last Admin: 12/31/20 13:09 Dose: 10 mg Documented by: Non-Formulary Medication (Amphetamine/Dextroamphetamine [Adderall Xr]) 30 mg PO ASDIRECTED JORDAN Non-Formulary Medication (Metaxalone) 400 mg PO BID PRN PRN Reason: Pain Ondansetron HCl (Ondansetron 4 Mg/2 Ml Sdv) 4 mg IVPUSH ONETIME ONE Stop: 12/31/20 10:03 Last Admin: 12/31/20 10:41 Dose: 4 mg Documented by: - Exam Quality Assessment: Supplemental Oxygen, DVT Prophylaxis General: Alert, Oriented, Cooperative, No Acute Distress HEENT: Pupils Equal, Pupils Reactive, EOMI, Mucous Membr. Moist/[place] Neck: Supple, Trachea Midline Lungs: Decreased Breath Sounds, Crackles, Rales Cardiovascular: Regular Rate, Regular Rhythm GI/Abdominal Exam: Normal Bowel Sounds, Soft, Non-Tender, No Distention (Male) Exam: Deferred Back Exam: Normal Inspection, Full Range of Motion Extremities: Normal Inspection, No Pedal Edema Skin: Warm, Dry, Intact Neurological: No New Focal Deficit, Normal Gait, Normal Speech Psy/Mental Status: Alert, Normal Affect, Normal Mood - Patient Data Lab Results Last 24 hrs: Laboratory Results - last 24 hr 01/02/21 01/02/21 Range/Units 05:15 05:15 WBC 4.12 L (4.23-9.07) K/mm3 RBC 5.01 (4.63-6.08) M/mm3 Hgb 14.4 (13.7-17.5) gm/dl Hct 45.0 (40.1-51.0) % MCV 89.8 (79.0-92.2) fl MCH 28.7 (25.7-32.2) pg MCHC 32.0 L (32.2-35.5) g/dl RDW Std Deviation 46.7 H (35.1-43.9) fL Plt Count 254 (163-337) K/mm3 MPV 9.8 (9.4-12.3) fl Neut % (Auto) 59.8 (34.0-67.9) % Lymph % (Auto) 26.2 (21.8-53.1) % Calhoun % (Auto) 13.6 H (5.3-12.2) % Eos % (Auto) 0 L (0.8-7.0) Baso % (Auto) 0.2 (0.1-1.2) % Neut # (Auto) 2.46 (1.78-5.38) K/mm3 Lymph # (Auto) 1.08 L (1.32-3.57) K/mm3 [place]oun # (Auto) 0.56 (0.30-0.82) K/mm3 Eos # (Auto) 0.00 L (0.04-0.54) K/mm3 Baso # (Auto) 0.01 (0.01-0.08) K/mm3 Sodium 143 (136-145) mEq/L Potassium 4.9 (3.5-5.1) mEq/L Chloride 103 (98-107) mEq/L Carbon Dioxide 35 H (21-32) mEq/L Anion Gap 9.9 (5-15) BUN 13 (7-18) mg/dL Creatinine 0.9 (0.7-1.3) mg/dL Est Cr Clr Drug Dosing 135.73 mL/min Estimated GFR (MDRD) > 60 (>60) mL/min BUN/Creatinine Ratio 14.4 (14-18) Glucose 136 H (70-99) mg/dL Calcium 8.9 (8.5-10.1) mg/dL Magnesium 2.2 (1.8-2.4) mg/dL Total Bilirubin 0.4 (0.2-1.0) mg/dL AST 67 H (15-37) U/L ALT 78 H (16-63) U/L Alkaline Phosphatase 48 (46-116) U/L C-Reactive Protein 1.8 H* (<1.0) mg/dL Total Protein 7.0 (6.4-8.2) g/dl Albumin 3.3 L (3.4-5.0) g/dl Globulin 3.7 gm/dL Albumin/Globulin Ratio 0.9 L (1-2) Result Diagrams: 01/02/21 05:15 01/02/21 05:15 Sepsis Event Note - Evaluation Sepsis Screening Result: Possible Sepsis Risk - Focused Exam Vital Signs: Vital Signs Temp Resp BP Pulse Ox Pulse Ox 01/02/21 06:00 93 L 01/02/21 05:51 94 L 01/02/21 05:00 93 L 01/02/21 04:00 36.2 C 16 113/73 99 01/02/21 03:00 95 01/02/21 02:00 92 L 01/02/21 00:00 36.2 C 18 107/68 91 L 01/01/21 23:00 92 L 01/01/21 21:30 93 L 01/01/21 21:00 94 L 01/01/21 20:00 36.2 C 20 117/71 90 L - Problem List & Annotations (1) Acute respiratory failure due to COVID-19 SNOMED Code(s): 250777300 Code(s): U07.1 - COVID-19; J96.00 - ACUTE RESPIRATORY FAILURE, UNSP W HYPOXIA OR HYPERCAPNIA Status: Acute Priority: High Current Visit: Yes (2) Pneumonia due to COVID-19 virus SNOMED Code(s): 734456232702298495 Code(s): U07.1 - COVID-19; J12.82 - PNEUMONIA DUE TO CORONAVIRUS DISEASE 2019 Status: Acute Priority: High Current Visit: Yes (3) Hypoxia SNOMED Code(s): 813811661 Code(s): R09.02 - HYPOXEMIA Status: Acute Priority: High Current Visit: Yes (4) Leukopenia SNOMED Code(s): 91721829, 413891236 Code(s): D72.819 - DECREASED WHITE BLOOD CELL COUNT, UNSPECIFIED Status: Acute Priority: High Current Visit: Yes Qualifiers: Leukopenia type: neutropenia Neutropenia type: due to infection Qualified Code(s): D70.3 - Neutropenia due to infection - Problem List Review Problem List Initiated/Reviewed/Updated: Yes - My Orders Last 24 Hours: My Active Orders 01/01/21 08:32 Benzonatate [Tessalon Perles] 100 mg PO Q8H PRN 01/01/21 09:00 DULoxetine [Cymbalta] 60 mg PO DAILY dexAMETHasone 6 mg PO DAILY 01/01/21 13:00 Remdesivir 100 mg Sodium Chloride 0.9% [Normal Saline] 100 ml IV Q24H - Assessment Assessment:: The patient is a 35-year-old gentleman who is somewhat improved today. He is currently on remdesivir and dexamethasone. Both these will be continued. The patient is also remaining leukopenia and repeat laboratory studies have been ordered. The leukopenia is secondary to his viral infection. Continue with diet as tolerated. Continue to monitor vital signs. Continue on telemetry. The patient previously had been contraindicated for pharmacological DVT prophylaxis. This was due to vomiting of blood or blood like material. The patient's hemoglobin has remained stable. If the patient's hemoglobin has remained stable then consider discontinuing SCDs and restarting heparin or Love nox. The patient should be appropriate for discharge after completion of remdesivir. 01/02/2021 The patient is a 35-year-old gentleman who is currently being treated for COVID- 19 pneumonia. Continue with the remdesivir. He is also on dexamethasone which will be continued. The patient has Zofran ordered for his nausea and vomiting. The patient has reported blood or blood like material which can be coming from a mild gastritis or from oral cavity. Regardless the patient's hemoglobin has remained stable. Protonix 40 mg IV twice daily. He is on SCDs for DVT proph ylaxis. Continue with diet as tolerated. The patient has been instructed in the use of the Acapella and the incentive spirometer. The patient has been encouraged to ambulate in the room. He should be appropriate for discharge after completion of remdesivir and oxygen demands have improved. - Plan Plan:: The patient is a 35-year-old gentleman who is being admitted to acute hospitalization as an inpatient secondary to acute respiratory failure and pneum onia associated with COVID-19. The patient had a single dose of remdesivir 200 mg IV in the emergency department and he has been started on remdesivir 100 mg IV starting tomorrow. The patient is also on dexamethasone 6 mg p.o. daily to start tomorrow. The patient's hemoglobin was in the normal range and he may have been vomiting blood due to gastritis or esophageal tear regardless the patient's nausea and vomiting will be controlled with the use of Zofran and have also elected to place the patient on Protonix IV 40 mg twice daily. The patient will also have repeat laboratory studies in the morning to help monitor the patient's hepatic function from use with the remdesivir. The patient's hemoglobin will be monitored for any drop. The patient also will have his oxygen titrated to keep his saturations around 92%. The patient will have DVT prophylaxis with the use of SCDs. Patient will also have regular diet as tolerated. The patient should be appropriate for discharge after oxygen demands have been improved and remdesivir is finished. This may take 4 to 5 days.
[2021-01-02] MEDS: Dexamethasone 4 MG Tab PO SCH (08:56)
[2021-01-02] MEDS: DULoxetine 30 MG Cap PO SCH (08:56)
[2021-01-02] MEDS: Pantoprazole 40 MG Vial IVPUSH SCH ×2 (08:57→21:39)
[2021-01-02] MEDS: REMDESIVIR 100 MG in Sodium Chloride 0.9% 100 ML IV SCH (12:45)
[2021-01-02] MEDS: Ondansetron 4 MG/2 ML SDV IVPUSH PRN ×2 (12:53→21:39)
[2021-01-03] MEDS: Ondansetron 4 MG/2 ML SDV IVPUSH PRN (05:11)
[2021-01-03] MEDS: oxyCODONE 5 MG Tab PO PRN ×3 (05:11→20:56)
[2021-01-03] MEDS: Pantoprazole 40 MG Vial IVPUSH SCH (08:05)
[2021-01-03] MEDS: Dexamethasone 4 MG Tab PO SCH (08:06)
[2021-01-03] MEDS: DULoxetine 30 MG Cap PO SCH (08:06)
[2021-01-03] MEDS: Albuterol 6.7 GM Inhaler INH PRN ×2 (08:08→15:10)
--- NOTE | 2021-01-03 10:42 | PCM.PN ---
<Jeffrey Barajas - Last Filed: 01/03/21 13:42> - General Info Date of Service: 01/03/21 Admission Dx/Problem (Free Text): Admission Diagnosis/Problem Admission Diagnosis/Problem Hypoxia Functional Status: Reports: Pain Controlled, Tolerating Diet, Ambulating, Urinating, Incentive Spirometry, Other (Acapella ). Denies: New Symptoms - Review of Systems General: Reports: Weakness. Denies: Fever, Fatigue, Malaise, Chills HEENT: Reports: No Symptoms. Denies: Headaches, Visual Changes Pulmonary: Reports: Shortness of Breath, Cough, Sputum. Denies: Pleuritic Chest Pain, Wheezing Cardiovascular: Reports: Dyspnea on Exertion. Denies: Chest Pain, Palpitations, Edema Gastrointestinal: Reports: No Symptoms. Denies: Abdominal Pain, Constipation, Diarrhea, Nausea, Vomiting Genitourinary: Reports: No Symptoms. Denies: Pain Musculoskeletal: Reports: Neck Pain (chronic ), Back Pain (chroinc ), Other (Generalized myalgias) Skin: Reports: No Symptoms. Denies: Cyanosis Neurological: Reports: No Symptoms. Denies: Confusion, Dizziness, Headache, Numbness, Pre-Existing Deficit, Seizure, Syncope, Tingling, Tremors, Trouble Speaking, Difficulty Walking, Change in Speech, Gait Disturbance Psychiatric: Reports: No Symptoms - Patient Data Vitals - Most Recent: Last Vital Signs Temp 97.2 F 01/03/21 05:00 Pulse 90 01/03/21 05:00 Resp 20 01/03/21 05:00 BP 117/81 01/03/21 05:00 Pulse Ox 91 L 01/03/21 08:08 Weight - Most Recent: 254 lb 3.2 oz I&O - Last 24 Hours: Intake & Output 01/02/21 01/03/21 01/03/21 22:59 06:59 14:59 Intake Total 1260 500 Balance 1260 500 Lab Results Last 24 Hours: Laboratory Results - last 24 hr 01/03/21 01/03/21 Range/Units 04:54 04:54 WBC 4.24 (4.23-9.07) K/mm3 RBC 4.71 (4.63-6.08) M/mm3 Hgb 13.5 L (13.7-17.5) gm/dl Hct 42.4 (40.1-51.0) % MCV 90.0 (79.0-92.2) fl MCH 28.7 (25.7-32.2) pg MCHC 31.8 L (32.2-35.5) g/dl RDW Std Deviation 45.3 H (35.1-43.9) fL Plt Count 273 (163-337) K/mm3 MPV 10.0 (9.4-12.3) fl Neut % (Auto) 61.1 (34.0-67.9) % Lymph % (Auto) 20.8 L (21.8-53.1) % [place] % (Auto) 16.7 H (5.3-12.2) % Eos % (Auto) 0 L (0.8-7.0) Baso % (Auto) 0.0 L (0.1-1.2) % Neut # (Auto) 2.59 (1.78-5.38) K/mm3 Lymph # (Auto) 0.88 L (1.32-3.57) K/mm3 [place] # (Auto) 0.71 (0.30-0.82) K/mm3 Eos # (Auto) 0.00 L (0.04-0.54) K/mm3 Baso # (Auto) 0.00 L (0.01-0.08) K/mm3 Manual Slide Review Normal smear Sodium 143 (136-145) mEq/L Potassium 5.1 (3.5-5.1) mEq/L Chloride 103 (98-107) mEq/L Carbon Dioxide 33 H (21-32) mEq/L Anion Gap 12.1 (5-15) BUN 15 (7-18) mg/dL Creatinine 0.8 (0.7-1.3) mg/dL Est Cr Clr Drug Dosing 152.70 mL/min Estimated GFR (MDRD) > 60 (>60) mL/min BUN/Creatinine Ratio 18.8 H (14-18) Glucose 161 H (70-99) mg/dL Calcium 8.3 L (8.5-10.1) mg/dL Total Bilirubin 0.4 (0.2-1.0) mg/dL AST 49 H (15-37) U/L ALT 72 H (16-63) U/L Alkaline Phosphatase 48 (46-116) U/L C-Reactive Protein 0.6 (<1.0) mg/dL Total Protein 6.5 (6.4-8.2) g/dl Albumin 3.1 L (3.4-5.0) g/dl Globulin 3.4 gm/dL Albumin/Globulin Ratio 0.9 L (1-2) Med Orders - Current: Current Medications Acetaminophen (Acetaminophen 325 Mg Tab) 650 mg PO Q4H PRN PRN Reason: Pain (Mild 1-3)/fever Albuterol (Albuterol 6.7 Gm Inhaler) 0 gm INH Q4H PRN PRN Reason: SOB/WHEEZING Last Admin: 01/03/21 08:08 Dose: 2 puff Documented by: Albuterol/Ipratropium (Albuterol/Ipratropium 3.0-0.5 Mg/3 Ml Neb Soln) 3 ml NEB Q4H PRN PRN Reason: Shortness Of Breath/wheezing Benzonatate (Benzonatate 100 Mg Cap) 100 mg PO Q8H PRN PRN Reason: Cough Last Admin: 01/02/21 21:38 Dose: 100 mg Documented by: Dexamethasone (Dexamethasone 4 Mg Tab) 6 mg PO DAILY [facility] Last Admin: 01/03/21 08:06 Dose: 6 mg Documented by: Docusate Sodium (Docusate Sodium 100 Mg Cap) 100 mg PO BID PRN PRN Reason: Constipation Duloxetine HCl (Duloxetine 30 Mg Cap) 60 mg PO DAILY [facility] Last Admin: 01/03/21 08:06 Dose: 60 mg Documented by: Remdesivir 100 mg/ Sodium (Chloride) 100 mls @ 100 mls/hr IV Q24H [facility] Stop: 01/04/21 13:59 Last Admin: 01/02/21 12:45 Dose: 100 mls/hr Documented by: Ondansetron HCl (Ondansetron 4 Mg Tab.Dis) 4 mg PO Q4H PRN PRN Reason: nausea, able to take PO Last Admin: 12/31/20 14:24 Dose: 4 mg Documented by: Ondansetron HCl (Ondansetron 4 Mg/2 Ml Sdv) 4 mg IVPUSH Q6H PRN PRN Reason: Nausea/Vomiting Last Admin: 01/03/21 05:11 Dose: 4 mg Documented by: Oxycodone HCl (Oxycodone 5 Mg Tab) 5 mg PO Q4H PRN PRN Reason: Pain (moderate 4-6) Last Admin: 01/03/21 05:11 Dose: 5 mg Documented by: Pantoprazole Sodium (Pantoprazole 40 Mg Tab.Cr) 40 mg PO BID JORDAN Promethazine HCl (Promethazine 25 Mg Tab) 25 mg PO Q12H PRN PRN Reason: Nausea/Vomiting Last Admin: 01/01/21 09:22 Dose: 25 mg Documented by: Sodium Chloride (Sodium Chloride 0.9% 10 Ml Syringe) 10 ml FLUSH ASDIRECTED PRN PRN Reason: Keep Vein Open Last Admin: 12/31/20 10:41 Dose: 10 ml Documented by: Temazepam (Temazepam 15 Mg Cap) 15 mg PO BEDTIME PRN PRN Reason: Sleep Last Admin: 01/01/21 22:13 Dose: 15 mg Documented by: Discontinued Medications Dexamethasone (Dexamethasone 4 Mg/Ml Sdv) 6 mg IVPUSH ONETIME ONE Stop: 12/31/20 11:42 Last Admin: 12/31/20 13:09 Dose: 6 mg Documented by: Enoxaparin Sodium (Enoxaparin 40 Mg/0.4 Ml Syringe) 40 mg SUBCUT DAILY JORDAN Sodium Chloride (Normal Saline) 1,000 mls @ 1,000 mls/hr IV .BOLUS JORDAN Last Admin: 12/31/20 10:41 Dose: 1,000 mls/hr Documented by: Remdesivir 200 mg/ Sodium (Chloride) 250 mls @ 250 mls/hr IV ONETIME ONE Stop: 12/31/20 11:42 Last Admin: 12/31/20 13:15 Dose: 250 mls/hr Documented by: Metoclopramide HCl (Metoclopramide 10 Mg/2 Ml Sdv) 10 mg IVPUSH ONETIME ONE Stop: 12/31/20 12:30 Last Admin: 12/31/20 13:09 Dose: 10 mg Documented by: Non-Formulary Medication (Amphetamine/Dextroamphetamine [Adderall Xr]) 30 mg PO ASDIRECTED JORDAN Non-Formulary Medication (Metaxalone) 400 mg PO BID PRN PRN Reason: Pain Ondansetron HCl (Ondansetron 4 Mg/2 Ml Sdv) 4 mg IVPUSH ONETIME ONE Stop: 12/31/20 10:03 Last Admin: 12/31/20 10:41 Dose: 4 mg Documented by: Pantoprazole Sodium (Pantoprazole 40 Mg Vial) 40 mg IVPUSH BID JORDAN Last Admin: 01/03/21 08:05 Dose: 40 mg Documented by: - Exam Quality Assessment: Supplemental Oxygen (3L), DVT Prophylaxis General: Alert, Oriented, Cooperative, Mild Distress (Looks uncomfortable ) HEENT: Pupils Equal, Pupils Reactive, Mucous Membr. Moist/[place] Neck: Supple, Trachea Midline Lungs: Decreased Breath Sounds, Crackles, Wheezing Cardiovascular: Regular Rate, Regular Rhythm GI/Abdominal Exam: Normal Bowel Sounds, Soft, Non-Tender, No Distention (Male) Exam: Deferred Back Exam: Normal Inspection, Full Range of Motion Extremities: Normal Inspection, Normal Range of Motion, Non-Tender, No Pedal Edema, Normal Capillary Refill Peripheral Pulses: 3+: Radial (L), Radial (R), Dorsalis Pedis (L), Dorsalis Pedis (R) Skin: Warm, Dry, Intact Neurological: No New Focal Deficit Psy/Mental Status: Alert, Normal Mood, Anxious - Patient Data Lab Results Last 24 hrs: Laboratory Results - last 24 hr 01/03/21 01/03/21 Range/Units 04:54 04:54 WBC 4.24 (4.23-9.07) K/mm3 RBC 4.71 (4.63-6.08) M/mm3 Hgb 13.5 L (13.7-17.5) gm/dl Hct 42.4 (40.1-51.0) % MCV 90.0 (79.0-92.2) fl MCH 28.7 (25.7-32.2) pg MCHC 31.8 L (32.2-35.5) g/dl RDW Std Deviation 45.3 H (35.1-43.9) fL Plt Count 273 (163-337) K/mm3 MPV 10.0 (9.4-12.3) fl Neut % (Auto) 61.1 (34.0-67.9) % Lymph % (Auto) 20.8 L (21.8-53.1) % [place] % (Auto) 16.7 H (5.3-12.2) % Eos % (Auto) 0 L (0.8-7.0) Baso % (Auto) 0.0 L (0.1-1.2) % Neut # (Auto) 2.59 (1.78-5.38) K/mm3 Lymph # (Auto) 0.88 L (1.32-3.57) K/mm3 [place] # (Auto) 0.71 (0.30-0.82) K/mm3 Eos # (Auto) 0.00 L (0.04-0.54) K/mm3 Baso # (Auto) 0.00 L (0.01-0.08) K/mm3 Manual Slide Review Normal smear Sodium 143 (136-145) mEq/L Potassium 5.1 (3.5-5.1) mEq/L Chloride 103 (98-107) mEq/L Carbon Dioxide 33 H (21-32) mEq/L Anion Gap 12.1 (5-15) BUN 15 (7-18) mg/dL Creatinine 0.8 (0.7-1.3) mg/dL Est Cr Clr Drug Dosing 152.70 mL/min Estimated GFR (MDRD) > 60 (>60) mL/min BUN/Creatinine Ratio 18.8 H (14-18) Glucose 161 H (70-99) mg/dL Calcium 8.3 L (8.5-10.1) mg/dL Total Bilirubin 0.4 (0.2-1.0) mg/dL AST 49 H (15-37) U/L ALT 72 H (16-63) U/L Alkaline Phosphatase 48 (46-116) U/L C-Reactive Protein 0.6 (<1.0) mg/dL Total Protein 6.5 (6.4-8.2) g/dl Albumin 3.1 L (3.4-5.0) g/dl Globulin 3.4 gm/dL Albumin/Globulin Ratio 0.9 L (1-2) Result Diagrams: 01/03/21 04:54 01/03/21 04:54 Sepsis Event Note - Evaluation Sepsis Screening Result: No Definite Risk - Focused Exam Vital Signs: Vital Signs Temp Pulse Resp BP Pulse Ox Pulse Ox 01/03/21 08:08 91 L 01/03/21 06:22 89 L 01/03/21 05:00 97.2 F 90 20 117/81 92 L - Problem List & Annotations (1) Anxiety SNOMED Code(s): 94264728 Code(s): F41.9 - ANXIETY DISORDER, UNSPECIFIED Status: Chronic Priority: Low Current Visit: No (2) Depression SNOMED Code(s): 44993298 Code(s): F32.9 - MAJOR DEPRESSIVE DISORDER, SINGLE EPISODE, UNSPECIFIED St atus: Chronic Priority: Low Current Visit: No Qualifiers: Depression Type: other depression Qualified Code(s): F32.89 - Other specified depressive episodes (3) Cough SNOMED Code(s): 61996652 Code(s): R05 - COUGH Status: Acute Priority: High Current Visit: Yes (4) ADD (attention deficit disorder) SNOMED Code(s): 27842134 Code(s): F98.8 - OTH BEHAV/EMOTN DISORD W ONSET USLY OCCUR IN CHLDHD AND ADOL Status: Chronic Priority: Low Current Visit: No Qualifiers: Hyperactivity presence: unspecified Qualified Code(s): F98.8 - Other specified behavioral and emotional disorders with onset usually occurring in childhood and adolescence (5) Acute respiratory failure due to COVID-19 SNOMED Code(s): 473618727 Code(s): U07.1 - COVID-19; J96.00 - ACUTE RESPIRATORY FAILURE, UNSP W HYPOXIA OR HYPERCAPNIA Status: Acute Priority: High Current Visit: Yes (6) Hypoxia SNOMED Code(s): 833049204 Code(s): R09.02 - HYPOXEMIA Status: Acute Priority: High Current Visit: Yes (7) Leukopenia SNOMED Code(s): 16725726, 813941782 Code(s): D72.819 - DECREASED WHITE BLOOD CELL COUNT, UNSPECIFIED Status: Resolved Priority: High Current Visit: Yes Qualifiers: Leukopenia type: neutropenia Neutropenia type: due to infection Qualified Code(s): D70.3 - Neutropenia due to infection (8) Pneumonia due to COVID-19 virus SNOMED Code(s): 451831007307271929 Code(s): U07.1 - COVID-19; J12.82 - PNEUMONIA DUE TO CORONAVIRUS DISEASE 2019 Status: Acute Priority: High Current Visit: Yes (9) Chronic neck and back pain SNOMED Code(s): 74300101 Code(s): M54.2 - CERVICALGIA; M54.9 - DORSALGIA, UNSPECIFIED Status: Chronic Priority: Medium Current Visit: Yes - Problem List Review Problem List Initiated/Reviewed/Updated: Yes - My Orders Last 24 Hours: My Active Orders 01/03/21 21:00 Pantoprazole [ProTONIX] 40 mg PO BID - Assessment Assessment:: Day of admission - 12/31/2020 The patient is a 35-year-old gentleman who is being admitted to acute hospitalization as an inpatient secondary to acute respiratory failure and pneumonia associated with COVID-19. The patient had a single dose of remdesivir 200 mg IV in the emergency department and he has been started on remdesivir 100 mg IV starting tomorrow. The patient is also on dexamethasone 6 mg p.o. daily to start tomorrow. The patient's hemoglobin was in the normal range and he may have been vomiting blood due to gastritis or esophageal tear regardless the patient's nausea and vomiting will be controlled with the use of Zofran and have also elected to place the patient on Protonix IV 40 mg twice daily. The [facility] will also have repeat laboratory studies in the morning to help monitor the patient's hepatic function from use with the remdesivir. The patient's hemoglobin will be monitored for any drop. The patient also will have his oxygen titrated to keep his saturations around 92%. The patient will have DVT prophylaxis with the use of SCDs. Patient will also have regular diet as tolerated. The patient should be appropriate for discharge after oxygen demands have been improved and remdesivir is finished. This may take 4 to 5 days. 01/01/2021 The patient is a 35-year-old gentleman who is somewhat improved today. He is currently on remdesivir and dexamethasone. Both these will be continued. The patient is also remaining leukopenia and repeat laboratory studies have been ordered. The leukopenia is secondary to his viral infection. Continue with diet as tolerated. Continue to monitor vital signs. Continue on telemetry. The patient previously had been contraindicated for pharmacological DVT prophylaxis. This was due to vomiting of blood or blood like material. The patient's hemoglobin has remained stable. If the patient's hemoglobin has remained stable then consider discontinuing SCDs and restarting heparin or Lovenox. The patient should be appropriate for discharge after completion of remdesivir. 01/02/2021 The patient is a 35-year-old gentleman who is currently being treated for COVID- 19 pneumonia. Continue with the remdesivir. He is also on dexamethasone which will be continued. The patient has Zofran ordered for his nausea and vomiting. The patient has reported blood or blood like material which can be coming from a mild gastritis or from oral cavity. Regardless the patient's hemoglobin has remained stable. Protonix 40 mg IV twice daily. He is on SCDs for DVT prophylaxis. Continue with diet as tolerated. The patient has been instructed in the use of the Acapella and the incentive spirometer. The patient has been encouraged to ambulate in the room. He should be appropriate for discharge after completion of remdesivir and oxygen demands have improved. 01/03/2021 35-year-old male who was admitted to the floor for COVID-19 pneumonia symptoms. He was also reported to have some hematemesis versus blood-tinged sputum. He reports this has resolved and his Hgb has remained stable. Labs today show WBC of 4.24. Hemoglobin 13.5. He is normocytic. Platelet 273,000. Neutrophils are 61.1%. Sodium 143. Potassium 5.1. Chloride 103. Carbon dioxide 33. BUN is 15. Creatinine 0.8. GFR greater than 60. Glucose 161. Calcium 8.3. Total bilirubin 0.4. AST is 49, ALT 72, alkaline phosphatase 48. CRP is 0.6. Albumin is 3.1. Protein is 6.5. Remains on 3 L with saturations in the low 90s. He is on day 4 of remdesivir and dexamethasone. He reports continuing cough with significant sputum. We will order scheduled Robitussin-DM. He already has as needed Tessalon Perles ordered. We will check a vitamin D and D- dimer. Patient has been refusing his SCDs and we will therefore switch to Lovenox 40 mg daily. He remains in isolation. Unknown length of stay pending progress. Will require at least 5 days treatment. - Plan Plan:: Pneumonia due to COVID-19 virus Acute respiratory failure due to COVID-19 Hypoxia Leukopenia, resolved Cough * Remdesivir day 4/5 * Dexamethasone day 4/10 * PRN Tessalon Perles * Scheduled Robitussin-DM * O2 as needed with goal saturation between 88 and 95%. * RT consultation * I-S/Acapella * Airborne/contact precautions * Start daily zinc supplementation * Check vitamin D * Check D-dimer * Daily labs * Encourage proning whenever able * Ambulate around room * Protonix 40 mg twice daily due to bloody sputum * Lovenox as ordered Anxiety Depression ADD (attention deficit disorder) * Hold home Adderall * Continue home Cymbalta * Monitor * No acute concerns Chronic neck and back pain * PRN pain medications as ordered * Lidocaine patch * Consider PT * No acute concerns Code status: Full Code PCP: Joann Brink PA-C DVT Prophylaxis: Lovenox Disposition: Patient admitted to the floor for management of COVID-19 pneumonia. Likely length of stay 5 days pending appointment of remdesivir. Length of stay greater than 96 hours due to need for continued COVID-19 treatment. <Latanya Lopez - Last Filed: 01/03/21 13:57> - Patient Data Vitals - Most Recent: Last Vital Signs Temp 98.6 F 01/03/21 09:00 Pulse 60 01/03/21 09:00 Resp 16 01/03/21 09:00 BP 124/78 01/03/21 09:00 Pulse Ox 94 L 01/03/21 09:00 I&O - Last 24 Hours: Intake & Output 01/02/21 01/03/21 01/03/21 22:59 06:59 14:59 Intake Total 1260 500 Balance 1260 500 Lab Results Last 24 Hours: Laboratory Results - last 24 hr 01/03/21 01/03/21 Range/Units 04:54 04:54 WBC 4.24 (4.23-9.07) K/mm3 RBC 4.71 (4.63-6.08) M/mm3 Hgb 13.5 L (13.7-17.5) gm/dl Hct 42.4 (40.1-51.0) % MCV 90.0 (79.0-92.2) fl MCH 28.7 (25.7-32.2) pg MCHC 31.8 L (32.2-35.5) g/dl RDW Std Deviation 45.3 H (35.1-43.9) fL Plt Count 273 (163-337) K/mm3 MPV 10.0 (9.4-12.3) fl Neut % (Auto) 61.1 (34.0-67.9) % Lymph % (Auto) 20.8 L (21.8-53.1) % [place] % (Auto) 16.7 H (5.3-12.2) % Eos % (Auto) 0 L (0.8-7.0) Baso % (Auto) 0.0 L (0.1-1.2) % Neut # (Auto) 2.59 (1.78-5.38) K/mm3 Lymph # (Auto) 0.88 L (1.32-3.57) K/mm3 [place] # (Auto) 0.71 (0.30-0.82) K/mm3 Eos # (Auto) 0.00 L (0.04-0.54) K/mm3 Baso # (Auto) 0.00 L (0.01-0.08) K/mm3 Manual Slide Review Normal smear Sodium 143 (136-145) mEq/L Potassium 5.1 (3.5-5.1) mEq/L Chloride 103 (98-107) mEq/L Carbon Dioxide 33 H (21-32) mEq/L Anion Gap 12.1 (5-15) BUN 15 (7-18) mg/dL Creatinine 0.8 (0.7-1.3) mg/dL Est Cr Clr Drug Dosing 152.70 mL/min Estimated GFR (MDRD) > 60 (>60) mL/min BUN/Creatinine Ratio 18.8 H (14-18) Glucose 161 H (70-99) mg/dL Calcium 8.3 L (8.5-10.1) mg/dL Total Bilirubin 0.4 (0.2-1.0) mg/dL AST 49 H (15-37) U/L ALT 72 H (16-63) U/L Alkaline Phosphatase 48 (46-116) U/L C-Reactive Protein 0.6 (<1.0) mg/dL Total Protein 6.5 (6.4-8.2) g/dl Albumin 3.1 L (3.4-5.0) g/dl Globulin 3.4 gm/dL Albumin/Globulin Ratio 0.9 L (1-2) Med Orders - Current: Current Medications Acetaminophen (Acetaminophen 325 Mg Tab) 650 mg PO Q4H PRN PRN Reason: Pain (Mild 1-3)/fever Albuterol (Albuterol 6.7 Gm Inhaler) 0 gm INH Q4H PRN PRN Reason: SOB/WHEEZING Last Admin: 01/03/21 08:08 Dose: 2 puff Documented by: Albuterol/Ipratropium (Albuterol/Ipratropium 3.0-0.5 Mg/3 Ml Neb Soln) 3 ml NEB Q4H PRN PRN Reason: Shortness Of Breath/wheezing Benzonatate (Benzonatate 100 Mg Cap) 100 mg PO Q8H PRN PRN Reason: Cough Last Admin: 01/02/21 21:38 Dose: 100 mg Documented by: Dexamethasone (Dexamethasone 4 Mg Tab) 6 mg PO DAILY [facility] Stop: 01/09/21 09:01 Last Admin: 01/03/21 08:06 Dose: 6 mg Documented by: Docusate Sodium (Docusate Sodium 100 Mg Cap) 100 mg PO BID PRN PRN Reason: Constipation Duloxetine HCl (Duloxetine 30 Mg Cap) 60 mg PO DAILY [facility] Last Admin: 01/03/21 08:06 Dose: 60 mg Documented by: Enoxaparin Sodium (Enoxaparin 40 Mg/0.4 Ml Syringe) 40 mg SUBCUT Q24H [facility] Guaifenesin/Phenylephrine HCl (Guaifenesin/Dextromethorphan 100-10 Mg/5 Ml Soln 5 Ml Cup) 10 ml PO TID@0700,1400,2100 [facility] Last Admin: 01/03/21 12:51 Dose: 10 ml Documented by: Remdesivir 100 mg/ Sodium (Chloride) 100 mls @ 100 mls/hr IV Q24H [facility] Stop: 01/04/21 13:59 Last Admin: 01/03/21 12:48 Dose: 100 mls/hr Documented by: Lidocaine (Lidocaine 4% 1 Each Patch) 1 each TOP DAILY [facility] Miscellaneous Information (Remove Lidocaine Patch) 1 ea TRDERM BEDTIME [facility] Ondansetron HCl (Ondansetron 4 Mg Tab.Dis) 4 mg PO Q4H PRN PRN Reason: nausea, able to take PO Last Admin: 01/03/21 12:52 Dose: 4 mg Documented by: Ondansetron HCl (Ondansetron 4 Mg/2 Ml Sdv) 4 mg IVPUSH Q6H PRN PRN Reason: Nausea/Vomiting Last Admin: 01/03/21 05:11 Dose: 4 mg Documented by: Oxycodone HCl (Oxycodone 5 Mg Tab) 5 mg PO Q4H PRN PRN Reason: Pain (moderate 4-6) Last Admin: 01/03/21 12:51 Dose: 5 mg Documented by: Pantoprazole Sodium (Pantoprazole 40 Mg Tab.Cr) 40 mg PO BID JORDAN Promethazine HCl (Promethazine 25 Mg Tab) 25 mg PO Q12H PRN PRN Reason: Nausea/Vomiting Last Admin: 01/01/21 09:22 Dose: 25 mg Documented by: Sodium Chloride (Sodium Chloride 0.9% 10 Ml Syringe) 10 ml FLUSH ASDIRECTED PRN PRN Reason: Keep Vein Open Last Admin: 12/31/20 10:41 Dose: 10 ml Documented by: Temazepam (Temazepam 15 Mg Cap) 15 mg PO BEDTIME PRN PRN Reason: Sleep Last Admin: 01/01/21 22:13 Dose: 15 mg Documented by: Zinc Sulfate (Zinc Sulfate 220 Mg Cap) 220 mg PO DAILY JORDAN Last Admin: 01/03/21 12:52 Dose: 220 mg Documented by: Discontinued Medications Dexamethasone (Dexamethasone 4 Mg/Ml Sdv) 6 mg IVPUSH ONETIME ONE Stop: 12/31/20 11:42 Last Admin: 12/31/20 13:09 Dose: 6 mg Documented by: Enoxaparin Sodium (Enoxaparin 40 Mg/0.4 Ml Syringe) 40 mg SUBCUT DAILY JORDAN Famotidine (Famotidine 20 Mg Tab) 20 mg PO BID JORDAN Sodium Chloride (Normal Saline) 1,000 mls @ 1,000 mls/hr IV .BOLUS JORDAN Last Admin: 12/31/20 10:41 Dose: 1,000 mls/hr Documented by: Remdesivir 200 mg/ Sodium (Chloride) 250 mls @ 250 mls/hr IV ONETIME ONE Stop: 12/31/20 11:42 Last Admin: 12/31/20 13:15 Dose: 250 mls/hr Documented by: Sodium Chloride (Normal Saline) Confirm Administered Dose 100 mls @ as directed .ROUTE .STK-MED ONE Stop: 01/03/21 12:40 Last Admin: 01/03/21 13:07 Dose: Not Given Documented by: Lidocaine (Lidocaine 4% 1 Each Patch) 1 each TOP ONETIME ONE Stop: 01/03/21 13:31 Metoclopramide HCl (Metoclopramide 10 Mg/2 Ml Sdv) 10 mg IVPUSH ONETIME ONE Stop: 12/31/20 12:30 Last Admin: 12/31/20 13:09 Dose: 10 mg Documented by: Non-Formulary Medication (Amphetamine/Dextroamphetamine [Adderall Xr]) 30 mg PO ASDIRECTED JORDAN Non-Formulary Medication (Metaxalone) 400 mg PO BID PRN PRN Reason: Pain Non-Formulary Medication (Lidocaine 5%) 1,400 mg TOP DAILY [facility] Ondansetron HCl (Ondansetron 4 Mg/2 Ml Sdv) 4 mg IVPUSH ONETIME ONE Stop: 12/31/20 10:03 Last Admin: 12/31/20 10:41 Dose: 4 mg Documented by: Pantoprazole Sodium (Pantoprazole 40 Mg Vial) 40 mg IVPUSH BID JORDAN Last Admin: 01/03/21 08:05 Dose: 40 mg Documented by: - Patient Data Lab Results Last 24 hrs: Laboratory Results - last 24 hr 01/03/21 01/03/21 Range/Units 04:54 04:54 WBC 4.24 (4.23-9.07) K/mm3 RBC 4.71 (4.63-6.08) M/mm3 Hgb 13.5 L (13.7-17.5) gm/dl Hct 42.4 (40.1-51.0) % MCV 90.0 (79.0-92.2) fl MCH 28.7 (25.7-32.2) pg MCHC 31.8 L (32.2-35.5) g/dl RDW Std Deviation 45.3 H (35.1-43.9) fL Plt Count 273 (163-337) K/mm3 MPV 10.0 (9.4-12.3) fl Neut % (Auto) 61.1 (34.0-67.9) % Lymph % (Auto) 20.8 L (21.8-53.1) % [place] % (Auto) 16.7 H (5.3-12.2) % Eos % (Auto) 0 L (0.8-7.0) Baso % (Auto) 0.0 L (0.1-1.2) % Neut # (Auto) 2.59 (1.78-5.38) K/mm3 Lymph # (Auto) 0.88 L (1.32-3.57) K/mm3 [place] # (Auto) 0.71 (0.30-0.82) K/mm3 Eos # (Auto) 0.00 L (0.04-0.54) K/mm3 Baso # (Auto) 0.00 L (0.01-0.08) K/mm3 Manual Slide Review Normal smear Sodium 143 (136-145) mEq/L Potassium 5.1 (3.5-5.1) mEq/L Chloride 103 (98-107) mEq/L Carbon Dioxide 33 H (21-32) mEq/L Anion Gap 12.1 (5-15) BUN 15 (7-18) mg/dL Creatinine 0.8 (0.7-1.3) mg/dL Est Cr Clr Drug Dosing 152.70 mL/min Estimated GFR (MDRD) > 60 (>60) mL/min BUN/Creatinine Ratio 18.8 H (14-18) Glucose 161 H (70-99) mg/dL Calcium 8.3 L (8.5-10.1) mg/dL Total Bilirubin 0.4 (0.2-1.0) mg/dL AST 49 H (15-37) U/L ALT 72 H (16-63) U/L Alkaline Phosphatase 48 (46-116) U/L C-Reactive Protein 0.6 (<1.0) mg/dL Total Protein 6.5 (6.4-8.2) g/dl Albumin 3.1 L (3.4-5.0) g/dl Globulin 3.4 gm/dL Albumin/Globulin Ratio 0.9 L (1-2) Result Diagrams: 01/03/21 04:54 01/03/21 04:54 Sepsis Event Note - Focused Exam Vital Signs: Vital Signs Temp Pulse Resp BP Pulse Ox Pulse Ox 01/03/21 09:00 98.6 F 60 16 124/78 94 L 01/03/21 08:08 91 L 01/03/21 06:22 89 L 01/03/21 05:00 97.2 F 90 20 117/81 92 L - Plan Plan:: 01/03/21 Patient seen and examined and agree with assessment and plan. no changes to present management at this time Physical Exam: cvs: [id number] Resp: [place] shallow Abd: s/nt/nd Ext:no edema
[2021-01-03] MEDS ORDERED: Famotidine 20 MG Tab PO SCH (12:15)
[2021-01-03] MEDS ORDERED: Sodium Chloride 0.9% 0 ML ONE (12:39)
[2021-01-03] MEDS: REMDESIVIR 100 MG in Sodium Chloride 0.9% 100 ML IV SCH (12:48)
[2021-01-03] MEDS: guaiFENesin/Dextromethorphan 100-10 MG/5 ML Soln 5 ML Cup PO SCH ×3 (12:51→20:55)
[2021-01-03] MEDS: Ondansetron 4 MG Tab.DIS PO PRN (12:52)
[2021-01-03] MEDS: Zinc Sulfate 220 MG Cap PO SCH (12:52)
[2021-01-03] MEDS ORDERED: Non-Formulary Medication 1 Each (Lidocaine 5% 700 MG Patch) TOP SCH (13:30)
[2021-01-03] MEDS ORDERED: Lidocaine 4% 1 each Patch TOP ONE (13:30)
[2021-01-03] MEDS: Enoxaparin 40 MG/0.4 ML Syringe SUBCUT SCH (16:13)
[2021-01-03 18:14] VITALS: PULSE 64
[2021-01-03] MEDS: Benzonatate 100 MG Cap PO PRN (20:55)
[2021-01-03] MEDS: Pantoprazole 40 MG Tab.CR PO SCH (20:56)
[2021-01-04] MEDS: Benzonatate 100 MG Cap PO PRN (05:53)
[2021-01-04] MEDS: oxyCODONE 5 MG Tab PO PRN ×2 (05:53→10:24)
[2021-01-04] MEDS: guaiFENesin/Dextromethorphan 100-10 MG/5 ML Soln 5 ML Cup PO SCH ×2 (06:00→13:10)
--- NOTE | 2021-01-04 07:16 | PCM.PN ---
- General Info Date of Service: 01/04/21 Admission Dx/Problem (Free Text): Admission Diagnosis/Problem Admission Diagnosis/Problem Hypoxia - Patient Data Vitals - Most Recent: Last Vital Signs Temp 97.2 F 01/04/21 04:00 Pulse 64 01/03/21 16:00 Resp 16 01/04/21 04:00 BP 114/80 01/04/21 04:00 Pulse Ox 94 L 01/04/21 04:00 Weight - Most Recent: 254 lb 6.4 oz I&O - Last 24 Hours: Intake & Output 01/03/21 01/04/21 01/04/21 22:59 06:59 14:59 Intake Total 900 500 Balance 900 500 Lab Results Last 24 Hours: Laboratory Results - last 24 hr 01/03/21 01/03/21 01/04/21 Range/Units 13:27 13:27 05:16 WBC 5.89 (4.23-9.07) K/mm3 RBC 5.28 (4.63-6.08) M/mm3 Hgb 15.0 D (13.7-17.5) gm/dl Hct 47.0 (40.1-51.0) % MCV 89.0 (79.0-92.2) fl MCH 28.4 (25.7-32.2) pg MCHC 31.9 L (32.2-35.5) g/dl RDW Std Deviation 43.9 (35.1-43.9) fL Plt Count 357 H D (163-337) K/mm3 MPV 10.0 (9.4-12.3) fl Neut % (Auto) 60.2 (34.0-67.9) % Lymph % (Auto) 22.6 (21.8-53.1) % [place] % (Auto) 13.1 H (5.3-12.2) % Eos % (Auto) 0.2 L (0.8-7.0) Baso % (Auto) 0.3 (0.1-1.2) % Neut # (Auto) 3.55 (1.78-5.38) K/mm3 Lymph # (Auto) 1.33 (1.32-3.57) K/mm3 [place] # (Auto) 0.77 (0.30-0.82) K/mm3 Eos # (Auto) 0.01 L (0.04-0.54) K/mm3 Baso # (Auto) 0.02 (0.01-0.08) K/mm3 Manual Slide Review Normal smear D-Dimer, Quantitative 0.38 (0.19-0.50) mg/L Sodium (136-145) mEq/L Potassium (3.5-5.1) mEq/L Chloride (98-107) mEq/L Carbon Dioxide (21-32) mEq/L Anion Gap (5-15) BUN (7-18) mg/dL Creatinine (0.7-1.3) mg/dL Est Cr Clr Drug Dosing mL/min Estimated GFR (MDRD) (>60) mL/min BUN/Creatinine Ratio (14-18) Glucose (70-99) mg/dL Calcium (8.5-10.1) mg/dL Magnesium (1.8-2.4) mg/dL Total Bilirubin (0.2-1.0) mg/dL AST (15-37) U/L ALT (16-63) U/L Alkaline Phosphatase (46-116) U/L C-Reactive Protein (<1.0) mg/dL Total Protein (6.4-8.2) g/dl Albumin (3.4-5.0) g/dl Globulin gm/dL Albumin/Globulin Ratio (1-2) Vitamin D 25-Hydroxy 32.7 (30.0-100.0) ng/ml 01/04/21 Range/Units 05:16 WBC (4.23-9.07) K/mm3 RBC (4.63-6.08) M/mm3 Hgb (13.7-17.5) gm/dl Hct (40.1-51.0) % MCV (79.0-92.2) fl MCH (25.7-32.2) pg MCHC (32.2-35.5) g/dl RDW Std Deviation (35.1-43.9) fL Plt Count (163-337) K/mm3 MPV (9.4-12.3) fl Neut % (Auto) (34.0-67.9) % Lymph % (Auto) (21.8-53.1) % [place] % (Auto) (5.3-12.2) % Eos % (Auto) (0.8-7.0) Baso % (Auto) (0.1-1.2) % Neut # (Auto) (1.78-5.38) K/mm3 Lymph # (Auto) (1.32-3.57) K/mm3 [place] # (Auto) (0.30-0.82) K/mm3 Eos # (Auto) (0.04-0.54) K/mm3 Baso # (Auto) (0.01-0.08) K/mm3 Manual Slide Review D-Dimer, Quantitative (0.19-0.50) mg/L Sodium 142 (136-145) mEq/L Potassium 4.7 (3.5-5.1) mEq/L Chloride 102 (98-107) mEq/L Carbon Dioxide 35 H (21-32) mEq/L Anion Gap 9.7 (5-15) BUN 13 (7-18) mg/dL Creatinine 0.8 (0.7-1.3) mg/dL Est Cr Clr Drug Dosing 152.70 mL/min Estimated GFR (MDRD) > 60 (>60) mL/min BUN/Creatinine Ratio 16.3 (14-18) Glucose 123 H (70-99) mg/dL Calcium 8.7 (8.5-10.1) mg/dL Magnesium 2.1 (1.8-2.4) mg/dL Total Bilirubin 0.5 (0.2-1.0) mg/dL AST 49 H (15-37) U/L ALT 87 H (16-63) U/L Alkaline Phosphatase 54 (46-116) U/L C-Reactive Protein 0.3 (<1.0) mg/dL Total Protein 7.1 (6.4-8.2) g/dl Albumin 3.3 L (3.4-5.0) g/dl Globulin 3.8 gm/dL Albumin/Globulin Ratio 0.9 L (1-2) Vitamin D 25-Hydroxy (30.0-100.0) ng/ml Med Orders - Current: Current Medications Acetaminophen (Acetaminophen 325 Mg Tab) 650 mg PO Q4H PRN PRN Reason: Pain (Mild 1-3)/fever Albuterol (Albuterol 6.7 Gm Inhaler) 0 gm INH Q4H PRN PRN Reason: SOB/WHEEZING Last Admin: 01/03/21 15:10 Dose: 2 puff Documented by: Albuterol/Ipratropium (Albuterol/Ipratropium 3.0-0.5 Mg/3 Ml Neb Soln) 3 ml NEB Q4H PRN PRN Reason: Shortness Of Breath/wheezing Benzonatate (Benzonatate 100 Mg Cap) 100 mg PO Q8H PRN PRN Reason: Cough Last Admin: 01/04/21 05:53 Dose: 100 mg Documented by: Dexamethasone (Dexamethasone 4 Mg Tab) 6 mg PO DAILY [facility] Stop: 01/09/21 09:01 Last Admin: 01/03/21 08:06 Dose: 6 mg Documented by: Docusate Sodium (Docusate Sodium 100 Mg Cap) 100 mg PO BID PRN PRN Reason: Constipation Duloxetine HCl (Duloxetine 30 Mg Cap) 60 mg PO DAILY [facility] Last Admin: 01/03/21 08:06 Dose: 60 mg Documented by: Enoxaparin Sodium (Enoxaparin 40 Mg/0.4 Ml Syringe) 40 mg SUBCUT Q24H [facility] Last Admin: 01/03/21 16:13 Dose: 40 mg Documented by: Guaifenesin/Phenylephrine HCl (Guaifenesin/Dextromethorphan 100-10 Mg/5 Ml Soln 5 Ml Cup) 10 ml PO TID@0700,1400,2100 [facility] Last Admin: 01/04/21 06:00 Dose: 10 ml Documented by: Remdesivir 100 mg/ Sodium (Chloride) 100 mls @ 100 mls/hr IV Q24H [facility] Stop: 01/04/21 13:59 Last Admin: 01/03/21 12:48 Dose: 100 mls/hr Documented by: Lidocaine (Lidocaine 4% 1 Each Patch) 1 each TOP DAILY [facility] Miscellaneous Information (Remove Lidocaine Patch) 1 ea TRDERM BEDTIME [facility] Last Admin: 01/03/21 22:03 Dose: Not Given Documented by: Ondansetron HCl (Ondansetron 4 Mg Tab.Dis) 4 mg PO Q4H PRN PRN Reason: nausea, able to take PO Last Admin: 01/03/21 12:52 Dose: 4 mg Documented by: Ondansetron HCl (Ondansetron 4 Mg/2 Ml Sdv) 4 mg IVPUSH Q6H PRN PRN Reason: Nausea/Vomiting Last Admin: 01/03/21 05:11 Dose: 4 mg Documented by: Oxycodone HCl (Oxycodone 5 Mg Tab) 5 mg PO Q4H PRN PRN Reason: Pain (moderate 4-6) Last Admin: 01/04/21 05:53 Dose: 5 mg Documented by: Pantoprazole Sodium (Pantoprazole 40 Mg Tab.Cr) 40 mg PO BID [facility] Last Admin: 01/03/21 20:56 Dose: 40 mg Documented by: Promethazine HCl (Promethazine 25 Mg Tab) 25 mg PO Q12H PRN PRN Reason: Nausea/Vomiting Last Admin: 01/01/21 09:22 Dose: 25 mg Documented by: Sodium Chloride (Sodium Chloride 0.9% 10 Ml Syringe) 10 ml FLUSH ASDIRECTED PRN PRN Reason: Keep Vein Open Last Admin: 12/31/20 10:41 Dose: 10 ml Documented by: Temazepam (Temazepam 15 Mg Cap) 15 mg PO BEDTIME PRN PRN Reason: Sleep Last Admin: 01/01/21 22:13 Dose: 15 mg Documented by: Zinc Sulfate (Zinc Sulfate 220 Mg Cap) 220 mg PO DAILY [facility] Last Admin: 01/03/21 12:52 Dose: 220 mg Documented by: Discontinued Medications Dexamethasone (Dexamethasone 4 Mg/Ml Sdv) 6 mg IVPUSH ONETIME ONE Stop: 12/31/20 11:42 Last Admin: 12/31/20 13:09 Dose: 6 mg Documented by: Enoxaparin Sodium (Enoxaparin 40 Mg/0.4 Ml Syringe) 40 mg SUBCUT DAILY [facility] Famotidine (Famotidine 20 Mg Tab) 20 mg PO BID JORDAN Sodium Chloride (Normal Saline) 1,000 mls @ 1,000 mls/hr IV .BOLUS JORDAN Last Admin: 12/31/20 10:41 Dose: 1,000 mls/hr Documented by: Remdesivir 200 mg/ Sodium (Chloride) 250 mls @ 250 mls/hr IV ONETIME ONE Stop: 12/31/20 11:42 Last Admin: 12/31/20 13:15 Dose: 250 mls/hr Documented by: Sodium Chloride (Normal Saline) Confirm Administered Dose 100 mls @ as directed .ROUTE .STK-MED ONE Stop: 01/03/21 12:40 Last Admin: 01/03/21 13:07 Dose: Not Given Documented by: Lidocaine (Lidocaine 4% 1 Each Patch) 1 each TOP ONETIME ONE Stop: 01/03/21 13:31 Last Admin: 01/03/21 16:57 Dose: Not Given Documented by: Metoclopramide HCl (Metoclopramide 10 Mg/2 Ml Sdv) 10 mg IVPUSH ONETIME ONE Stop: 12/31/20 12:30 Last Admin: 12/31/20 13:09 Dose: 10 mg Documented by: Non-Formulary Medication (Amphetamine/Dextroamphetamine [Adderall Xr]) 30 mg PO ASDIRECTED JORDAN Non-Formulary Medication (Metaxalone) 400 mg PO BID PRN PRN Reason: Pain Non-Formulary Medication (Lidocaine 5%) 1,400 mg TOP DAILY [facility] Ondansetron HCl (Ondansetron 4 Mg/2 Ml Sdv) 4 mg IVPUSH ONETIME ONE Stop: 12/31/20 10:03 Last Admin: 12/31/20 10:41 Dose: 4 mg Documented by: Pantoprazole Sodium (Pantoprazole 40 Mg Vial) 40 mg IVPUSH BID [facility] Last Admin: 01/03/21 08:05 Dose: 40 mg Documented by: - Patient Data Lab Results Last 24 hrs: Laboratory Results - last 24 hr 01/03/21 01/03/21 01/04/21 Range/Units 13:27 13:27 05:16 WBC 5.89 (4.23-9.07) K/mm3 RBC 5.28 (4.63-6.08) M/mm3 Hgb 15.0 D (13.7-17.5) gm/dl Hct 47.0 (40.1-51.0) % MCV 89.0 (79.0-92.2) fl MCH 28.4 (25.7-32.2) pg MCHC 31.9 L (32.2-35.5) g/dl RDW Std Deviation 43.9 (35.1-43.9) fL Plt Count 357 H D (163-337) K/mm3 MPV 10.0 (9.4-12.3) fl Neut % (Auto) 60.2 (34.0-67.9) % Lymph % (Auto) 22.6 (21.8-53.1) % [place] % (Auto) 13.1 H (5.3-12.2) % Eos % (Auto) 0.2 L (0.8-7.0) Baso % (Auto) 0.3 (0.1-1.2) % Neut # (Auto) 3.55 (1.78-5.38) K/mm3 Lymph # (Auto) 1.33 (1.32-3.57) K/mm3 [place] # (Auto) 0.77 (0.30-0.82) K/mm3 Eos # (Auto) 0.01 L (0.04-0.54) K/mm3 Baso # (Auto) 0.02 (0.01-0.08) K/mm3 Manual Slide Review Normal smear D-Dimer, Quantitative 0.38 (0.19-0.50) mg/L Sodium (136-145) mEq/L Potassium (3.5-5.1) mEq/L Chloride (98-107) mEq/L Carbon Dioxide (21-32) mEq/L Anion Gap (5-15) BUN (7-18) mg/dL Creatinine (0.7-1.3) mg/dL Est Cr Clr Drug Dosing mL/min Estimated GFR (MDRD) (>60) mL/min BUN/Creatinine Ratio (14-18) Glucose (70-99) mg/dL Calcium (8.5-10.1) mg/dL Magnesium (1.8-2.4) mg/dL Total Bilirubin (0.2-1.0) mg/dL AST (15-37) U/L ALT (16-63) U/L Alkaline Phosphatase (46-116) U/L C-Reactive Protein (<1.0) mg/dL Total Protein (6.4-8.2) g/dl Albumin (3.4-5.0) g/dl Globulin gm/dL Albumin/Globulin Ratio (1-2) Vitamin D 25-Hydroxy 32.7 (30.0-100.0) ng/ml 01/04/21 Range/Units 05:16 WBC (4.23-9.07) K/mm3 RBC (4.63-6.08) M/mm3 Hgb (13.7-17.5) gm/dl Hct (40.1-51.0) % MCV (79.0-92.2) fl MCH (25.7-32.2) pg MCHC (32.2-35.5) g/dl RDW Std Deviation (35.1-43.9) fL Plt Count (163-337) K/mm3 MPV (9.4-12.3) fl Neut % (Auto) (34.0-67.9) % Lymph % (Auto) (21.8-53.1) % [place] % (Auto) (5.3-12.2) % Eos % (Auto) (0.8-7.0) Baso % (Auto) (0.1-1.2) % Neut # (Auto) (1.78-5.38) K/mm3 Lymph # (Auto) (1.32-3.57) K/mm3 [place] # (Auto) (0.30-0.82) K/mm3 Eos # (Auto) (0.04-0.54) K/mm3 Baso # (Auto) (0.01-0.08) K/mm3 Manual Slide Review D-Dimer, Quantitative (0.19-0.50) mg/L Sodium 142 (136-145) mEq/L Potassium 4.7 (3.5-5.1) mEq/L Chloride 102 (98-107) mEq/L Carbon Dioxide 35 H (21-32) mEq/L Anion Gap 9.7 (5-15) BUN 13 (7-18) mg/dL Creatinine 0.8 (0.7-1.3) mg/dL Est Cr Clr Drug Dosing 152.70 mL/min Estimated GFR (MDRD) > 60 (>60) mL/min BUN/Creatinine Ratio 16.3 (14-18) Glucose 123 H (70-99) mg/dL Calcium 8.7 (8.5-10.1) mg/dL Magnesium 2.1 (1.8-2.4) mg/dL Total Bilirubin 0.5 (0.2-1.0) mg/dL AST 49 H (15-37) U/L ALT 87 H (16-63) U/L Alkaline Phosphatase 54 (46-116) U/L C-Reactive Protein 0.3 (<1.0) mg/dL Total Protein 7.1 (6.4-8.2) g/dl Albumin 3.3 L (3.4-5.0) g/dl Globulin 3.8 gm/dL Albumin/Globulin Ratio 0.9 L (1-2) Vitamin D 25-Hydroxy (30.0-100.0) ng/ml Result Diagrams: 01/04/21 05:16 01/04/21 05:16 Sepsis Event Note - Evaluation Sepsis Screening Result: No Definite Risk - Focused Exam Vital Signs: Vital Signs Temp Resp BP Pulse Ox Pulse Ox 01/04/21 04:00 97.2 F 16 114/80 94 L 01/04/21 01:30 92 L 01/04/21 01:10 87 L 01/04/21 00:30 95 01/03/21 22:00 97.8 F 16 129/69 93 L 01/03/21 21:59 95 - Problem List & Annotations (1) Anxiety SNOMED Code(s): 27212920 Code(s): F41.9 - ANXIETY DISORDER, UNSPECIFIED Status: Chronic Priority: Low Current Visit: No (2) Depression SNOMED Code(s): 15434588 Code(s): F32.9 - MAJOR DEPRESSIVE DISORDER, SINGLE EPISODE, UNSPECIFIED Status: Chronic Priority: Low Current Visit: No Qualifiers: Depression Type: other depression Qualified Code(s): F32.89 - Other specified depressive episodes (3) Cough SNOMED Code(s): 40563430 Code(s): R05 - COUGH Status: Acute Priority: High Current Visit: Yes (4) ADD (attention deficit disorder) SNOMED Code(s): 86136678 Code(s): F98.8 - OTH BEHAV/EMOTN DISORD W ONSET USLY OCCUR IN CHLDHD AND ADOL Status: Chronic Priority: Low Current Visit: No Qualifiers: Hyperactivity presence: unspecified Qualified Code(s): F98.8 - Other specified behavioral and emotional disorders with onset usually occurring in childhood and adolescence (5) Acute respiratory failure due to COVID-19 SNOMED Code(s): 676691220 Code(s): U07.1 - COVID-19; J96.00 - ACUTE RESPIRATORY FAILURE, UNSP W HYPOXIA OR HYPERCAPNIA Status: Acute Priority: High Current Visit: Yes (6) Hypoxia SNOMED Code(s): 476040200 Code(s): R09.02 - HYPOXEMIA Status: Acute Priority: High Current Visit: Yes (7) Leukopenia SNOMED Code(s): 60591209, 830678725 Code(s): D72.819 - DECREASED WHITE BLOOD CELL COUNT, UNSPECIFIED Status: Resolved Priority: High Current Visit: Yes Qualifiers: Leukopenia type: neutropenia Neutropenia type: due to infection Qualified Code(s): D70.3 - Neutropenia due to infection (8) Pneumonia due to COVID-19 virus SNOMED Code(s): 437670384358367757 Code(s): U07.1 - COVID-19; J12.82 - PNEUMONIA DUE TO CORONAVIRUS DISEASE 2019 Status: Acute Priority: High Current Visit: Yes (9) Chronic neck and back pain SNOMED Code(s): 35468803 Code(s): M54.2 - CERVICALGIA; M54.9 - DORSALGIA, UNSPECIFIED Status: Chronic Priority: Medium Current Visit: Yes - My Orders Last 24 Hours: My Active Orders 01/03/21 12:30 Zinc Sulfate [Zincate] 220 mg PO DAILY 01/03/21 13:23 Consult to Respiratory Therapy [Respiratory Care Assess and Treatment] [CONS] Routine 01/03/21 14:00 Dextromethorphan/guaiFENesin [Robitussin DM] 10 ml PO TID@0700,1400,2100 Enoxaparin [Lovenox] 40 mg SUBCUT Q24H 01/03/21 15:45 patient positioning [Positioning, Patient] [RC] ASDIRECTED Pulse Oximetry Continuous Monitoring [OM.PC] Routine 01/03/21 21:00 Pantoprazole [ProTONIX] 40 mg PO BID Remove Patch 1 ea TRDER BEDTIME 01/04/21 09:00 Lidocaine 4% [Aspercreme 4%] 1 each TOP DAILY 01/05/21 05:11 CBC WITH AUTO DIFF [HEME] AM CMP [COMPREHENSIVE METABOLIC PN,CMP] [CHEM] AM CRP [C-REACTIVE PROTEIN] [CHEM] AM DD [D-DIMER QUANTITATIVE] [COAG] Q48H MAGNESIUM [CHEM] AM 01/06/21 05:11 CBC WITH AUTO DIFF [HEME] AM CMP [COMPREHENSIVE METABOLIC PN,CMP] [CHEM] AM CRP [C-REACTIVE PROTEIN] [CHEM] AM MAGNESIUM [CHEM] AM 01/07/21 05:11 CBC WITH AUTO DIFF [HEME] AM CMP [COMPREHENSIVE METABOLIC PN,CMP] [CHEM] AM CRP [C-REACTIVE PROTEIN] [CHEM] AM DD [D-DIMER QUANTITATIVE] [COAG] Q48H MAGNESIUM [CHEM] AM 01/09/21 05:11 DD [D-DIMER QUANTITATIVE] [COAG] Q48H - Assessment Assessment:: Day of admission - 12/31/2020 The patient is a 35-year-old gentleman who is being admitted to acute hospitalization as an inpatient secondary to acute respiratory failure and pneumonia associated with COVID-19. The patient had a single dose of remdesivir 200 mg IV in the emergency department and he has been started on remdesivir 100 mg IV starting tomorrow. The patient is also on dexamethasone 6 mg p.o. daily to start tomorrow. The patient's hemoglobin was in the normal range and he may have been vomiting blood due to gastritis or esophageal tear regardless the p atient's nausea and vomiting will be controlled with the use of Zofran and have also elected to place the patient on Protonix IV 40 mg twice daily. The patient will also have repeat laboratory studies in the morning to help monitor the patient's hepatic function from use with the remdesivir. The patient's hemoglobin will be monitored for any drop. The patient also will have his oxygen titrated to keep his saturations around 92%. The patient will have DVT prophylaxis with the use of SCDs. Patient will also have regular diet as tolerated. The patient should be appropriate for discharge after oxygen demands have been improved and remdesivir is finished. This may take 4 to 5 days. 01/01/2021 The patient is a 35-year-old gentleman who is somewhat improved today. He is currently on remdesivir and dexamethasone. Both these will be continued. The patient is also remaining leukopenia and repeat laboratory studies have been ordered. The leukopenia is secondary to his viral infection. Continue with diet as tolerated. Continue to monitor vital signs. Continue on telemetry. The patient previously had been contraindicated for pharmacological DVT prophylaxis. This was due to vomiting of blood or blood like material. The patient's hemoglobin has remained stable. If the patient's hemoglobin has remained stable then consider discontinuing SCDs and restarting heparin or Lovenox. The patient should be appropriate for discharge after completion of remdesivir. 01/02/2021 The patient is a 35-year-old gentleman who is currently being treated for COVID- 19 pneumonia. Continue with the remdesivir. He is also on dexamethasone which will be continued. The patient has Zofran ordered for his nausea and vomiting. The patient has reported blood or blood like material which can be coming from a mild gastritis or from oral cavity. Regardless the patient's hemoglobin has remained stable. Protonix 40 mg IV twice daily. He is on SCDs for DVT prophylaxis. Continue with diet as tolerated. The patient has been instructed in the use of the Acapella and the incentive spirometer. The patient has been encouraged to ambulate in the room. He should be appropriate for discharge after completion of remdesivir and oxygen demands have improved. 01/03/2021 35-year-old male who was admitted to the floor for COVID-19 pneumonia symptoms. He was also reported to have some hematemesis versus blood-tinged sputum. He reports this has resolved and his Hgb has remained stable. Labs today show WBC of 4.24. Hemoglobin 13.5. He is normocytic. Platelet 273,000. Neutrophils are 61.1%. Sodium 143. Potassium 5.1. Chloride 103. Carbon dioxide 33. BUN is 15. Creatinine 0.8. GFR greater than 60. Glucose 161. Calcium 8.3. Total bilirubin 0.4. AST is 49, ALT 72, alkaline phosphatase 48. CRP is 0.6. Albumin is 3.1. Protein is 6.5. Remains on 3 L with saturations in the low 90s. He is on day 4 of remdesivir and dexamethasone. He reports continuing cough with significant sputum. We will order scheduled Robitussin-DM. He already has as needed Tesrayon Lidia ordered. We will check a vitamin D and D- dimer. Patient has been refusing his SCDs and we will therefore switch to Lovenox 40 mg daily. He remains in isolation. Unknown length of stay pending progress. Will require at least 5 days treatment. - Plan Plan:: 01/03/21 Patient seen and examined and agree with assessment and plan. no changes to present management at this time Physical Exam: cvs: [id number] Resp: Coursem shallow Abd: s/nt/nd Ext:no edema
[2021-01-04] MEDS: Albuterol 6.7 GM Inhaler INH PRN (07:59)
[2021-01-04] MEDS: DULoxetine 30 MG Cap PO SCH (08:45)
[2021-01-04] MEDS: Zinc Sulfate 220 MG Cap PO SCH (08:45)
[2021-01-04] MEDS: Dexamethasone 4 MG Tab PO SCH (08:45)
[2021-01-04] MEDS: Pantoprazole 40 MG Tab.CR PO SCH (08:45)
[2021-01-04] MEDS ORDERED: Lidocaine 4% 1 each Patch TOP SCH (09:00)
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
[2021-01-04] MEDS: Enoxaparin 40 MG/0.4 ML Syringe SUBCUT SCH ×2 (13:10→13:19)
[2021-01-04] MEDS: REMDESIVIR 100 MG in Sodium Chloride 0.9% 100 ML IV SCH (13:10)
[2021-01-04 15:00] VITALS: BP 112/78
== END 2021-01-04 15:03 | disposition home or self-care (01) | DRG 177 ==
LOC: JD.ED 09:07 → SUPCPDRO 09:07 → JD.ICU 12:09
PROVIDERS: ADMIT Internal Medicine; ATTEND Internal Medicine
PROC: XW033E5 Introduction of Remdesivir Anti-infective into Peripheral Vein, Percutaneous Approach, New Technology Group 5 (ICD-10-PCS; principal; 2020-12-31)
PROC: 3E0333Z Introduction of Anti-inflammatory into Peripheral Vein, Percutaneous Approach (ICD-10-PCS; 2020-12-31)
PROC: 8E0ZXY6 Isolation (ICD-10-PCS; 2020-12-31)
DX: U07.1 COVID-19 (principal); J96.01 Acute respiratory failure with hypoxia; R09.02 Hypoxemia; J12.82 Pneumonia due to coronavirus disease 2019; F90.9 Attention-deficit hyperactivity disorder, unspecified type; F41.9 Anxiety disorder, unspecified; M54.5 Low back pain; F32.89 Other specified depressive episodes; F98.8 Other specified behavioral and emotional disorders with onset usually occurring in childhood and adolescence; D70.3 Neutropenia due to infection; M54.2 Cervicalgia; M54.9 Dorsalgia, unspecified; F32.9 Major depressive disorder, single episode, unspecified; G89.29 Other chronic pain; Z79.899 Other long term (current) drug therapy; Z88.8 Allergy status to other drugs, medicaments and biological substances; Z98.890 Other specified postprocedural states; Z86.19 Personal history of other infectious and parasitic diseases
CPT/HCPCS: 36415; 36600; 71045; 80053; 82248; 82728; 82803; 83605; 83615; 84484; 85025; 86140; 93005; 96374; 99285; J2405; J7030; 82306; 83735; 85379; 93010; 94640; 94667; 94668; 94762; 96375; 99223; 99233; 99239; 99284; A9270-GY; C9113; J1100; J1650; J2765; J7050; J8540; J8597

== ENCOUNTER 2024-04-25 16:10 | Observation (INO) | payer BC, MEDICAID ==
[2024-04-25 16:54] LABS: BASOPHILS ABSOLUTE AUTO 0.1 K/mm3 (0.0-0.2); BASOPHILS PERCENT AUTO 0.4 % (0.0-1.0); EOSINOPHILS ABSOLUTE AUTO 0.2 K/mm3 (0.0-0.4); HEMATOCRIT 48.7 % (42.0-52.0); HEMOGLOBIN 16.3 gm/dl (14.0-18.0); IMMATURE GRAN ABSOLUTE AUTO 0.03 K/mm3 (0.00-0.05); IMMATURE GRAN PERCENT AUTO 0.2 % (0.0-0.4); LYMPHOCYTES PERCENT AUTO 8.3 % (24.0-44.0); MEAN CORPUSCULAR HEMOGLOBIN 28.7 pg (28.0-32.0); MEAN CORPUSCULAR HGB CONC 33.5 g/dl (32.0-36.0); MEAN CORPUSCULAR VOLUME 85.9 fl (83.0-99.0); MEAN PLATELET VOLUME 9.1 fl (9.4-12.4); MONOCYTES ABSOLUTE AUTO 0.6 K/mm3 (0.0-0.8); MONOCYTES PERCENT AUTO 4.6 % (0.0-8.0); NEUTROPHILS ABSOLUTE AUTO 10.4 K/mm3 (1.8-7.7); NEUTROPHILS PERCENT AUTO 84.5 % (41.0-71.0); PLATELET COUNT,PLT 293 K/mm3 (150-400); RED BLOOD CELL COUNT 5.67 M/mm3 (4.52-5.90); WHITE BLOOD CELL COUNT,WBC 12.24 K/mm3 (3.9-11.3)
[2024-04-25 17:08] LABS: INR 0.99; PROTHROMBIN TIME 10.5 SECONDS (9.7-12.0)
[2024-04-25 17:09] LABS: D-DIMER QUANTITATIVE 0.33 mg/L (0.19-0.50); PTT,PARTIAL THROMBOPLSTIN TIME 23.6 SECONDS (21.7-31.4)
[2024-04-25 17:14] LABS: ALANINE AMINOTRANSFERASE,ALT 35 U/L (16-63); ALBUMIN 3.8 g/dl (3.4-5.0); ALKALINE PHOSPHATASE 62 U/L (46-116); ASPARTATE AMNIOTRANSFERASE,AST 16 U/L (15-37); BILIRUBIN TOTAL 0.6 mg/dL (0.2-1.0); BLOOD UREA NITROGEN,BUN 19 mg/dL (7-18); BUN/CREATININE RATIO 15.8 (14-18); CALCIUM 8.9 mg/dL (8.5-10.1); CARBON DIOXIDE,CO2 27 mEq/L (21-32); CHLORIDE,CL 102 mEq/L (98-107); CREATININE 1.2 mg/dL (0.7-1.3); EST CRCL DRUG DOSING (CG) 98.94 mL/min; ESTIMATED GFR 80 mL/min (>60); GLUCOSE RANDOM 124 mg/dL (70-99); MAGNESIUM 1.7 mg/dL (1.8-2.4); PROTEIN TOTAL,TP 7.5 g/dl (6.4-8.2); SODIUM,NA 138 mEq/L (136-145)
[2024-04-25 17:20] LABS: TROPONIN I HIGH SENSITIVITY < 4 pg/mL (<=76)
[2024-04-25] MEDS: Ketorolac 30 MG/ML SDV IVPUSH ONE (17:35)
[2024-04-25] MEDS: Metoclopramide 10 MG/2 ML SDV IVPUSH ONE (17:36)
[2024-04-25] MEDS: diphenhydrAMINE 50 MG/ML SDV IVPUSH ONE (17:36)
[2024-04-25] MEDS: Sodium Chloride 0.9% 1,000 ML IV ONE (17:36)
[2024-04-25 17:42] LABS: LACTIC ACID 1.9 mmol/L (0.4-2.0)
[2024-04-25] MEDS: Iopamidol 755 Mg/ML 100 ML Bottle IVPUSH ONE (18:14)
[2024-04-25] MEDS ORDERED: Sodium Chloride 0.9% 100 ML IV SCH (18:15)
[2024-04-25] MEDS ORDERED: Piperacillin/Tazobactam 4.5 GM in Sodium Chloride 0.9% 100 ML IV ONE (19:09)
[2024-04-25] MEDS ORDERED: Sodium Chloride 0.9% 1,000 ML IV SCH (19:30)
[2024-04-25] MEDS: methylPREDNISolone Sodium Succinate 125 MG/2 ML SDV IVPUSH ONE (19:34)
[2024-04-25] MEDS: Sodium Chloride 0.9% 1,000 ML IV SCH (19:34)
[2024-04-25] MEDS: Piperacillin/Tazobactam 4.5 GM Vial IV ONE (19:35)
[2024-04-25] MEDS: Acetaminophen 325 MG Tab PO ONE (19:50)
[2024-04-25] MEDS ORDERED: Acetaminophen 325 MG Tab PO PRN (21:58)
[2024-04-25] MEDS ORDERED: Ondansetron 4 MG/2 ML SDV IV PRN (21:58)
[2024-04-25] MEDS ORDERED: Sennosides/Docusate Sodium 50-8.6 MG Tab PO PRN (21:58)
[2024-04-25] MEDS ORDERED: Melatonin 3 MG Tab PO PRN (21:58)
[2024-04-25] MEDS ORDERED: Metoprolol Tartrate 5 MG/5 ML SDV IVPUSH PRN (22:01)
[2024-04-25] MEDS: Piperacillin/Tazobactam 4.5 GM in Sodium Chloride 0.9% 100 ML IV SCH (23:09)
[2024-04-26] MEDS: Piperacillin/Tazobactam 4.5 GM Vial IV SCH (03:28)
[2024-04-26 05:52] LABS: BASOPHILS PERCENT AUTO 0.2 % (0.0-1.0); EOSINOPHILS PERCENT AUTO 0.1 % (0.0-6.0); HEMATOCRIT 44.6 % (42.0-52.0); IMMATURE GRAN ABSOLUTE AUTO 0.04 K/mm3 (0.00-0.05); IMMATURE GRAN PERCENT AUTO 0.5 % (0.0-0.4); LYMPHOCYTES ABSOLUTE AUTO 0.6 K/mm3 (1.0-4.8); LYMPHOCYTES PERCENT AUTO 6.9 % (24.0-44.0); MEAN CORPUSCULAR HEMOGLOBIN 28.7 pg (28.0-32.0); MEAN CORPUSCULAR HGB CONC 33.6 g/dl (32.0-36.0); MEAN CORPUSCULAR VOLUME 85.4 fl (83.0-99.0); MEAN PLATELET VOLUME 9.1 fl (9.4-12.4); MONOCYTES ABSOLUTE AUTO 0.1 K/mm3 (0.0-0.8); MONOCYTES PERCENT AUTO 0.6 % (0.0-8.0); NEUTROPHILS ABSOLUTE AUTO 7.8 K/mm3 (1.8-7.7); NEUTROPHILS PERCENT AUTO 91.7 % (41.0-71.0); PLATELET COUNT,PLT 317 K/mm3 (150-400); RED BLOOD CELL COUNT 5.22 M/mm3 (4.52-5.90); WHITE BLOOD CELL COUNT,WBC 8.53 K/mm3 (3.9-11.3)
[2024-04-26] MEDS: Ondansetron 4 MG Tab.DIS PO PRN (06:09)
[2024-04-26] MEDS: oxyCODONE 5 MG Tab PO PRN (06:09)
[2024-04-26 06:14] LABS: A/G RATIO 0.9 (1-2); ALBUMIN 3.5 g/dl (3.4-5.0); ANION GAP 11.2 (5-15); BILIRUBIN TOTAL 0.7 mg/dL (0.2-1.0); BUN/CREATININE RATIO 16.2 (14-18); C-REACTIVE PROTEIN 5.81 mg/dL (<0.30); CALCIUM 9.1 mg/dL (8.5-10.1); CREATININE 1.3 mg/dL (0.7-1.3); EST CRCL DRUG DOSING (CG) 91.33 mL/min; MAGNESIUM 1.8 mg/dL (1.8-2.4); PHOSPHORUS 2.8 mg/dL (2.6-4.7); POTASSIUM,K 4.2 mEq/L (3.5-5.1); PROTEIN TOTAL,TP 7.4 g/dl (6.4-8.2)
[2024-04-26] MEDS: Enoxaparin 40 MG/0.4 ML Syringe SUBCUT SCH (08:13)
[2024-04-26] MEDS ORDERED: Magnesium Sulfate/Water Premix 4 GM in Premix Bag 1 BAG IV ONE (11:04)
[2024-04-26] MEDS ORDERED: Benzonatate 100 MG Cap PO PRN (11:34)
[2024-04-26] MEDS ORDERED: Albuterol 6.7 GM Inhaler INH PRN (11:34)
[2024-04-26] MEDS: Sodium Phosphate 30 MMOLE in Sodium Chloride 0.9% 250 ML IV ONE (11:41)
[2024-04-26] MEDS ORDERED: cefTRIAXone 2 GM Vial IV SCH (11:45)
[2024-04-26] MEDS ORDERED: cefTRIAXone 2 GM in Sodium Chloride 0.9% 100 ML IV SCH (11:45)
[2024-04-26] MEDS: cefTRIAXone 2 GM Vial IVPUSH SCH (11:56)
[2024-04-26] MEDS: Magnesium Sulfate/Water Premix 4 GM in Premix Bag 1 BAG IV ONE (15:17)
[2024-04-26] MEDS: LORazepam 1 MG Tab PO PRN (19:57)
[2024-04-27 06:00] LABS: BASOPHILS PERCENT AUTO 0.1 % (0.0-1.0); HEMATOCRIT 40.5 % (42.0-52.0); IMMATURE GRAN ABSOLUTE AUTO 0.09 K/mm3 (0.00-0.05); IMMATURE GRAN PERCENT AUTO 0.6 % (0.0-0.4); LYMPHOCYTES ABSOLUTE AUTO 1.4 K/mm3 (1.0-4.8); LYMPHOCYTES PERCENT AUTO 8.4 % (24.0-44.0); MEAN CORPUSCULAR HEMOGLOBIN 28.7 pg (28.0-32.0); MEAN CORPUSCULAR HGB CONC 32.1 g/dl (32.0-36.0); MEAN PLATELET VOLUME 9.5 fl (9.4-12.4); MONOCYTES ABSOLUTE AUTO 1.2 K/mm3 (0.0-0.8); MONOCYTES PERCENT AUTO 7.6 % (0.0-8.0); NEUTROPHILS ABSOLUTE AUTO 13.5 K/mm3 (1.8-7.7); NEUTROPHILS PERCENT AUTO 83.3 % (41.0-71.0); PLATELET COUNT,PLT 296 K/mm3 (150-400); RED BLOOD CELL COUNT 4.53 M/mm3 (4.52-5.90); WHITE BLOOD CELL COUNT,WBC 16.21 K/mm3 (3.9-11.3)
[2024-04-27 06:11] LABS: MEAN CORPUSCULAR VOLUME 89.4 fl (83.0-99.0)
[2024-04-27 06:23] LABS: ANION GAP 9.6 (5-15); C-REACTIVE PROTEIN 3.11 mg/dL (<0.30); CALCIUM 8.4 mg/dL (8.5-10.1); EST CRCL DRUG DOSING (CG) 118.73 mL/min; MAGNESIUM 2.4 mg/dL (1.8-2.4); PHOSPHORUS 3.3 mg/dL (2.6-4.7); POTASSIUM,K 4.6 mEq/L (3.5-5.1)
[2024-04-27 07:13] LABS: HEMOGLOBIN A1C 6.2 %
[2024-04-27] MEDS: DULoxetine 30 MG Cap PO SCH (09:59)
[2024-04-27 10:12] VITALS: BP 132/66; PULSE 81
== END 2024-04-27 18:40 | disposition home or self-care (01) ==
LOC: JD.ED 16:10 → JD.MS 21:58
PROVIDERS: ADMIT Student in an Organized Health Care Education/Training Program; ATTEND Student in an Organized Health Care Education/Training Program
DX: U07.1 COVID-19 (principal); J12.82 Pneumonia due to coronavirus disease 2019; J45.909 Unspecified asthma, uncomplicated; F32.A Depression, unspecified; E83.42 Hypomagnesemia; E83.39 Other disorders of phosphorus metabolism; R73.9 Hyperglycemia, unspecified; F41.9 Anxiety disorder, unspecified; Z79.899 Other long term (current) drug therapy
CPT/HCPCS: 36415; 71045; 71275; 80048; 80053; 83036; 83605; 83735; 83880; 84100; 84484; 85025; 85379; 85610; 85730; 86140; 87040; 93005; 94760; 94762; A9270; J0696; J1200; J1650; J1885; J2543; J2765; J2919; J3475; J7030; J7050; Q9967; J3490

== ENCOUNTER 2024-12-03 07:00 | Day surgery (SDC) | payer BC, OTHER ==
[~2024-12-03 07:00] MED LIST: Midazolam 1 MG/ML 2 ML SDV ONE; Propofol 200 MG/20 ML SDV ONE; Sodium Chloride 0.9% 10 ML Syringe FLUSH PRN; Sodium Chloride 0.9% 10 ML Syringe FLUSH SCH; fentaNYL 100 MCG/2 ML SDV ONE
[2024-12-03] MEDS: Lactated Ringers 1,000 ML IV SCH (07:27)
[2024-12-03] MEDS: Triamcinolone Acetonide 40 MG/ML 1 ML SDV ONE (08:17)
[2024-12-03 09:25] VITALS: BP 135/90; PULSE 72
== END 2024-12-03 09:34 | disposition home or self-care (01) ==
LOC: JD.SDS 07:00
PROVIDERS: ATTEND Orthopaedic Surgery
DX: G56.02 Carpal tunnel syndrome, left upper limb (principal); M65.4 Radial styloid tenosynovitis [de Quervain]; Z88.8 Allergy status to other drugs, medicaments and biological substances; Z86.16 Personal history of COVID-19; Z87.891 Personal history of nicotine dependence; Z79.899 Other long term (current) drug therapy
CPT/HCPCS: J0665; J2250; J2704; J3010; J3301; J7120